=== PATIENT | male | born 1950 | race Caucasian/White ===

== ENCOUNTER → 2017-11-11 | Outpatient (CLI) | payer MEDICARE, SELFPAY ==
[2017-11-11 18:13] LABS: PSA,Total - Annual Screen < 0.01 ng/mL (0.00-4.00)
== END | disposition home or self-care (01) ==
PROVIDERS: Visit Provider Family Medicine Geriatric Medicine
DX: C61 Malignant neoplasm of prostate (principal)
CPT/HCPCS: 36415; 84153; 84403; G0103

== ENCOUNTER → 2018-02-02 10:04 | Outpatient (CLI) | payer MEDICARE, OTHER, SELFPAY ==
[2018-02-02 12:13] LABS: Absolute Lymphocyte Count 0.79 X10^3/ul (0.83-4.51); Absolute Neutrophil Count 2.3 X10^3/uL (2.0-7.7); Basophil# 0.01 X10^3/uL; Basophil% 0.3 % (0-1); Eosinophil# 0.03 X10^3/uL; Eosinophils% 0.8 % (0-5); Hematocrit 45.6 % (40-54); Hemoglobin 15.5 g/dl (13.0-16.5); Lymphocyte # 0.79 X10^3/ul (4.0); Lymphocyte % 21.4 % (19-41); Mean Corpuscular Hgb 30.6 pg (27.0-32.0); Mean Corpuscular Volume 89.9 fL (80-94); Mean Platelet Vol. 11.5 fl (6.2-12.0); Monocyte# 0.59 X10^3/uL; Neutrophil # 2.25 X10^3/uL (2.7-7.7); Platelet Count 207 K/mm3 (150-450); RBC Distribution Width CV 12.8 % (11.6-14.6); RBC Distribution Width SD 41.6 fl (35.1-43.9); Red Blood Count 5.07 M/mm3 (4.6-6.2); White Blood Count 3.7 K/mm3 (4.4-11.0)
[2018-02-02 12:21] LABS: POSITIVE COUNT NO; POSITIVE DIFFERENTIAL NO; POSITIVE MORPHOLOGY NO
[2018-02-02 12:34] LABS: ALB/GLOB Ratio 1.1 RATIO (0.9-2.4); AST(SGOT) 24 U/L (15-37); Alanine Aminotransfer ALT/SGPT 37 U/L (16-61); Albumin, Serum 3.6 g/dL (3.2-5.0); Alkaline Phosphatase 77 U/L (45-117); Anion Gap 10 (5-15); BUN 16 mg/dL (7-18); BUN/Creat Ratio 13.9 RATIO (10-20); Calcium,Total 8.6 mg/dL (8.5-10.1); Chloride 100 mmol/L (98-107); Creatinine, Serum 1.15 mg/dL (0.70-1.30); EST Glomerular Filtration Rate 67 mL/min (>60); Est Glom Filt Rate - Afr Amer 81 mL/min (>60); Globulin 3.3 g/dL (2.2-4.2); Glucose 90 mg/dL (74-106); Potassium 3.7 mmol/L (3.5-5.1); Protein, Total 6.9 g/dL (6.4-8.2); Sodium Level 140 mmol/L (136-145); Thyroid Stim Hormone (TSH) 2.75 uIU/mL (0.358-3.74)
[2018-02-02 12:36] LABS: Vitamin D,25 Hydroxy 27.9 ng/mL (29.95-100.01)
[2018-02-04 11:49] LABS: Hep C Antibodies 0.1 s/co ratio (0.0-0.9)
== END ==
PROVIDERS: Visit Provider Family Medicine Geriatric Medicine
DX: E55.9 Vitamin D deficiency, unspecified (principal); I10 Essential (primary) hypertension; Z12.5 Encounter for screening for malignant neoplasm of prostate; Z13.89 Encounter for screening for other disorder
CPT/HCPCS: 36415; 80053; 82306; 84443; 85025; 86803

== ENCOUNTER 2018-09-07 11:00 | Outpatient (RCR) | payer MEDICARE, OTHER, SELFPAY ==
--- NOTE | 2018-08-25 17:14 | HP.PTEVAL_ITS ---
Patient's Visit Information MONICA RICHARDSON is a 68 year old M referred to Physical Therapy by Christiano Garzon DPM with a diagnosis of R and L PF/ achilles tendonitis/ heel spurs/flatfoot. Date of Evaluation: 08/25/18 Physical Therapist: CHINEDU Gtz - Visit Plan Frequency: 2-3x /Week Duration: 6 Weeks Plan: 2-3X/ week for 4-6 weeks for US to B achilles and heel with MT to the same. Gastroc and achilles stretches both manual and active with HEP and some strengthenining - Subjective Findings: Pt reports that he will get custom orthotics. 2-3 weeks his orthotics will come in He has a dull ache in B heels and x-rays revealed bone spurs in B heels. He was walking really good last summer. Laying in bed at night with his heels digging into the bed will hurt. It is not a horrible pain but enough to be annoying. He has no pain sitting here currently. He has no N&T. He has no decrease sensation in his feet. - Pain R heel pain Pain Intensity (Out of 10): 3 L heel pain Pain Intensity (Out of 10): 3 - Objective Gait: Walks with L forefoot abduction and decrease stance time on the R. Pt is able to walk on heels and toes ( icnrease knee pain). R ankle AROM: 10 degrees DF and 50 degrees PF. L ankle AROM: 15 degrees DF and 50 degrees PF. No tenderness to palpation today to either heel, achilles or PF area. B ankle Strength 5/5 DF, PF, INV, EV - Goals Goal 1:: I HEP Goal Time Frame: 4-6 Weeks Goal 2:: Increase B feet AROM to 15 degrees DF B and 55 degress PF B Goal Time Frame: 4-6 Weeks Goal 3:: Increase gastroc flexibility Goal Time Frame: 4-6 Weeks Goal 4:: Decrease pain and be able to return to recreational walking with less than 1/10 pain afterwards Goal Time Frame: 4-6 Weeks - Rehabilitation Potential Rehabilitation Potential: Good - Anticipated Interventions Thank you for the opportunity to evaluate your patient. For Medicare and Medicare HMO plans, please review the plan of care and approve it. It will need to be FAXED BACK to us at [phone] for Medicare purposes. For Medicare only, by signing this I certify the plan of care. Please let me know if there are questions or concerns regarding this plan of care. Physician Signature:____ Date:
--- NOTE | 2018-12-22 13:07 | HP.PTDCSUM ---
HP - PT D/C Summary It has been my pleasure to treat MONICA RICHARDSON under orders from Christiano Garzon DPM, for the diagnosis of R and L PF/ achilles tendonitis/ heel spurs/flatfoot for a total of 3 visit(s). Discharge Date: Please see the following information for a summary of their discharge status. - Subjective Subjective: Pain is not as painful as it used to be. His R knee is the most painful. Pt gets his orthotics tomm and hopefully that will relieve pressure as well. - Pain R heel pain Pain Intensity (Out of 10): 2 L heel pain Pain Intensity (Out of 10): 2 - Objective Objective/Function: tender on the bottom of the foot. - Goals Goal 1:: I HEP Goal 2:: Increase B feet AROM to 15 degrees DF B and 55 degress PF B Goal 3:: Increase gastroc flexibility Goal 4:: Decrease pain and be able to return to recreational walking with less than 1/10 pain afterwards - Plan Plan: Add slantboard stretch. '2-3X/ week for 4-6 weeks for US to B achilles and heel with MT to the same. Gastroc and achilles stretches both manual and active with HEP and some strengthenining - D/C Information If there are questions or concerns regarding this patient's physical therapy, please feel free to call me at [phone]. Thank you for the referral of this patient. Sincerely, Jayla Brower, MPT
== END 2018-09-07 19:00 | disposition home or self-care (01) ==
LOC: PT 11:00
PROVIDERS: Family Provider Family Medicine Geriatric Medicine; PCP Family Medicine Geriatric Medicine; Referring Provider Podiatrist; Visit Provider Podiatrist
DX: M72.2 Plantar fascial fibromatosis (principal); M76.61 Achilles tendinitis, right leg; M76.62 Achilles tendinitis, left leg; M77.31 Calcaneal spur, right foot; M77.32 Calcaneal spur, left foot; M21.41 Flat foot [pes planus] (acquired), right foot; M21.42 Flat foot [pes planus] (acquired), left foot; M76.821 Posterior tibial tendinitis, right leg; M76.822 Posterior tibial tendinitis, left leg
CPT/HCPCS: 97035; 97161; 97530

== ENCOUNTER → 2018-09-28 | Outpatient (CLI) | payer MEDICARE, OTHER, SELFPAY ==
--- NOTE | 2018-09-28 08:15 | RAD_ITS ---
STUDY: X-RAY - RIGHT KNEE REASON FOR EXAM: Male, 68 years old. Knee pain. TECHNIQUE: 5 view(s) of the knee. COMPARISON: None. FINDINGS: Osseous alignments appear anatomic. There is no acute fracture lucency. There is no cortical step-off. There is no tibial plateau split or depression. There is moderate medial compartment osteoarthritis manifested by joint-space loss, mild subchondral sclerosis and mild marginal osteophyte formation. There is moderate patellofemoral osteoarthritis. Multifocal degenerative patellar spurring is identified. There is a small effusion. There is no radiopaque joint loose body. Peaking of the tibial spines within the intercondylar notch probably represents an additional manifestation of osteoarthritis although cruciate ligament pathology may also present in this fashion. RAD/Knee 4 or More Views IMPRESSION: Multifocal osteoarthritis as characterized above. Small effusion. No evident acute osseous abnormality. No radiopaque joint loose body. Recommendation: If internal derangement is clinically suspected, recommend evaluation with MRI. Electronically Signed: Hussein Trejo MD at 13:39 EDT , Service support ,
== END | disposition home or self-care (01) ==
LOC: HPRAD 08:14
PROVIDERS: Family Provider Family Medicine Geriatric Medicine; PCP Family Medicine Geriatric Medicine; Referring Provider Orthopaedic Surgery; Visit Provider Orthopaedic Surgery
DX: M25.561 Pain in right knee (principal)
CPT/HCPCS: 73564

== ENCOUNTER → 2018-10-26 | Outpatient (CLI) | payer MEDICARE, OTHER, SELFPAY ==
--- NOTE | 2018-10-26 08:28 | RAD_ITS ---
STUDY: X-RAY - RIGHT FEMUR REASON FOR STUDY: Male, 68 years old. Pain TECHNIQUE: 2 view(s) of the femur. COMPARISON: None. FINDINGS: Right hip arthroplasty with normal alignment. No fractures or osteolytic lesions are seen. Moderate bicompartmental knee osteoarthritis. Arterial calcifications. RAD/Femur Min 2 Views IMPRESSION: No acute osseous abnormality. Electronically Signed: Gerardo Garcia MD at 10:34 EDT Tel , Service support ,
== END | disposition home or self-care (01) ==
LOC: HPRAD 08:27
PROVIDERS: Family Provider Family Medicine Geriatric Medicine; PCP Family Medicine Geriatric Medicine; Referring Provider Orthopaedic Surgery; Visit Provider Orthopaedic Surgery
DX: Z96.641 Presence of right artificial hip joint (principal)
CPT/HCPCS: 73552

== ENCOUNTER → 2018-11-05 | Outpatient (CLI) | payer MEDICARE, OTHER, SELFPAY ==
[2018-11-05 18:19] LABS: M R Staph aureus DNA By PCR Negative (Negative); Probe Check PASS; Staph aureus DNA By PCR POSITIVE (Negative)
[2018-11-10 15:27] LABS: Lyme IgG P18 Ab Absent (.); Lyme IgG P23 Ab Absent (.); Lyme IgG P28 Ab Absent (.); Lyme IgG P30 Ab Absent (.); Lyme IgG P39 Ab Absent (.); Lyme IgG P41 Ab Absent (.); Lyme IgG P45 Ab Absent (.); Lyme IgG P58 Ab Absent (.); Lyme IgG P66 Ab Absent (.); Lyme IgG P93 Ab Absent (.); Lyme IgM P23 Ab Absent (.); Lyme IgM P39 Ab Absent (.); Lyme IgM P41 Ab Absent (.)
[2018-11-10 16:14] LABS: Lyme IgG WB Interpretation Negative (.); Lyme IgM WB Interpretation Negative (.)
== END | disposition home or self-care (01) ==
LOC: POLAB3 16:05
PROVIDERS: Family Provider Family Medicine Geriatric Medicine; PCP Family Medicine Geriatric Medicine; Visit Provider Family Medicine Geriatric Medicine
DX: A69.20 Lyme disease, unspecified (principal); B95.62 Methicillin resistant Staphylococcus aureus infection as the cause of diseases classified elsewhere; L03.116 Cellulitis of left lower limb
CPT/HCPCS: 36415; 86617; 87070; 87075; 87077; 87186; 87205; 87640

== ENCOUNTER 2018-12-08 14:02 | Inpatient (IN) | payer MEDICARE, OTHER, SELFPAY ==
--- NOTE | 2018-10-26 11:41 | HP_ITS ---
Intake Intake Visit Reasons: R KNEE F/U Is patient in pain?: Yes Allergies chlorpromazine [From Thorazine] Allergy (Severe, Verified 09/28/18 08:18) Other Medications etodolac 500 mg tablet 500 mg PO BID #60 tab 09/28/18 [Rx Confirmed 09/28/18] hydrochlorothiazide 25 mg tablet PO 90 Days #90 tab 09/28/18 [History Confirmed 09/28/18] simvastatin 20 mg tablet PO 90 Days #90 tab 09/28/18 [History Confirmed 09/28/18] etodolac 500 mg tablet 500 mg PO BID #60 tab 10/26/18 [Rx Confirmed 10/26/18] PFSH Medical History HBP (high blood pressure) (Chronic) Surgical History H/O radical prostatectomy (Inactive) History of right hip replacement (Inactive) Social History Smoking Status: Never smoker HPI R KNEE F/U : Chief Complaint: Right knee Surgical H&P: Yes Details: Parts of this documentation were recorded by a scribe, this documentation accurately reflects the service provided and the decisions made by me, Davis Gudino, 10/26/18 0755. MONICA RICHARDSON is a 68 year old M here today for consent for right total knee. Patient states that he continues to have pain nearly all the time, he is limited with stairs and uneven surfaces. He has been compliant with anti inflammatory and uses it mostly at night. Denies numbness, tingling or other associated symptoms. Ortho Exam Right Knee Skin/Wound: No erythema, No ecchymosis, Yes swelling Homans Sign: No 2+: Effusion Knee ROM: No ROM-Extension -20 to 0 (3), No ROM-Flexion 0-140 (110) Examination: Yes Med jt line tenderness, Yes Lat jt line tenderness, Yes TTP inf pole patella, Yes Crepitus Stability: NML: Anterior Drawer, NML: Posterior Drawer, NML: Varus 30, 1+: Valgus 30 (5mm medial joint gapping) Apprehension with Lateral Translation: No Patella Grind: Yes KNEE: severe pain with patella grind Assessment & Plan Problems 1. Primary osteoarthritis of right knee M17.11 Plan Right TKA. Has allergy to Thorazine. Denies any metal allergies. Has a right CECILIO. Will order a femur x-rays to review before surgery. Risks, benefits and alternatives of surgery reviewed including but not limited to bleeding, infection, nerve, artery and/or tissue damage, fracture, VTE, mechanical feel of the knee, continued pain, stiffness and expected post- operative course. The patient understands all the risks and does wish to proceed with written consent. Educated that the main concern is movement and ROM. Placed on surgery schedule for 11/24/18. Follow up 2 weeks post op or sooner if pain, swelling, numbness or associated symptoms, or concerns develop. All questions answered. Patient in agreement of plan. Orders Orders: Femur Min 2 Views Today Z96.641 Medications New: etodolac do not take with other NSAIDS, STOP 1 week prior to surgery 500 mg PO BID 60 tabs 0RF Coding Level of Care Code Off vis,est,level 3 Diagnoses Primary osteoarthritis of right knee M17.11 10/26/18 1141 <Electronically signed by Davis Gudino DO> Date Davis Gudino DO
[2018-11-18 08:10] VITALS: BP 148/83; PULSE 63; RESP 16; TEMP 36.6; O2SAT 97; BMI 32.5
[2018-11-18 09:40] LABS: Anion Gap 10 (5-15); BUN 25 mg/dL (7-18); BUN/Creat Ratio 22.1 RATIO (10-20); Calcium,Total 8.9 mg/dL (8.5-10.1); Chloride 103 mmol/L (98-107); Creatinine, Serum 1.13 mg/dL (0.70-1.30); EST Glomerular Filtration Rate 68 mL/min (>60); Est Glom Filt Rate - Afr Amer 83 mL/min (>60); Estimated Creatinine Clearance 67.72 ml/min; Glucose 127 mg/dL (74-106); Potassium 3.2 mmol/L (3.5-5.1); Sodium Level 142 mmol/L (136-145)
--- NOTE | 2018-11-19 11:57 | CASEMGMT ---
Call placed to patient to discuss discharge needs after upcoming surgery. Patient plans to return home with assistance from . Patient does not have outpatient PT set up and is interested in home health PT as long as insurance will cover it. No preference of home health agency. Patient has a shower seat, does not have a walker, toilet riser, grab bars. Indicates that after hip surgery, did not need a toilet riser or grab bars. Bedroom and bathroom are on second level, there is a 1/2 bath on the first level. There are 2 steps to enter home. Informed patient that RN-Cm will follow up after surgery for further discharge needs. Ailyn Greer LPN Clinical Support
[2018-12-04 09:58] VITALS: BMI 32.5
--- NOTE | 2018-12-04 12:13 | CASEMGMT ---
Call placed to patient to discuss discharge needs after upcoming surgery. Patient plans to return home with assistance from and/or daughter. Patient has outpatient physical therapy set up at [facility], first visit is the Friday after surgery, 12/14/18, and /daughter will assist with transportation. Patient does not have a walker yet, was told that [facility] will provide one for him. Patient has high rise toilets in his home, also has a shower seat. Patient does not have a bedroom and bathroom on the 1st level of the home - lives in a 2 story home with bedrooms and bathrooms upstairs. Informed patient that RN-CM will likely follow up after surgery. Ailyn Greer LPN Clinical Support
[2018-12-08] VITALS (11 sets, daily range): BP systolic 100–151; BP diastolic 55–79; PULSE 55–85; RESP 14–18; TEMP 36.3–36.8; O2SAT 94–100; BMI 32.5
[2018-12-08] MEDS: Celecoxib 200 MG Capsule PO (06:34)
[2018-12-08] MEDS: Acetaminophen 500 MG Tablet PO (06:34)
[2018-12-08] MEDS: Pregabalin 75 MG Capsule PO (06:34)
[2018-12-08] MEDS: oxyCODONE HCl Cr 10 MG Tablet PO ×2 (06:35→21:20)
[2018-12-08] MEDS: Cefazolin 2 GM in 0.9% Normal Saline 100 ML IV ×3 (07:37→23:01)
[2018-12-08] MEDS: Epinephrine (1 mg/ml) 1 MG/ML VIAL (09:15)
[2018-12-08] MEDS: Morphine 4 MG/ML Syringe (09:15)
[2018-12-08] MEDS: Bupivacaine 0.5% PF 10 ML VIAL (09:15)
--- NOTE | 2018-12-08 10:13 | OP.PCM_ITS ---
Report of Operation Date of Procedure: 12/08/18 Description of Surgical Findings:: Preoperative diagnosis: Right knee DJD Postoperative diagnosis: [Same] Procedure: Right total knee arthroplasty Implant: Puma triathlon cemented right femoral component size 7, cemented tibial baseplate size 7, cemented [asymmetric] patella size 35, polyethylene X3 size [9] [CS] Anesthesia: Spinal general and postoperative adductor canal block Tourniquet time: 90 minutes at 300 mmHg Complications: None Condition: Stable to PACU Estimated blood loss: [25] cc Indication for procedure: This is a 68-year-old male with long standing degenerative joint disease of the knee who has failed conservative treatment and wished to proceed with elective total knee arthroplasty. Risk benefits and alternatives were reviewed including; risk of bleeding, infection, nerve artery and tissue damage, continued pain, postoperative stiffness, venous thromboembolism, need for postoperative rehabilitation, mechanical feel to the knee, and expected postoperative course. Procedure: The patient was met in the preoperative holding area. The operative extremity was identified by both patient and physician and was marked. Patient was met by anesthesia. An adductor canal block was placed by anesthesia [postoperatively] the patient was brought back to the operating room on a wheeled cart and transferred to the operating table in the supine position. Anesthesia was started. Spinal anesthesia was placed but was not effective and required conversion to general. A well-padded tourniquet was placed on the operative extremity. The patient was prepped and draped in the usual sterile fashion. A timeout was called to ensure the proper patient procedure and extremity were being contemplated. An Esmarch was used to exsanguinate the extremity. The tourniquet was inflated. A 10 blade scalpel was used to make a midline incision down through the skin and subcutaneous tissue. Skin retractors placed. Bovie was used to perform meticulous hemostasis. full-thickness flaps were elevated medial and lateral along the joint capsule. A deep blade scalpel was used to perform a medial parapatellar arthrotomy. The knee was brought to full extension. A Bovie was used to release the soft tissues off the most proximal aspect of the medial tibial plateau a three-quarter inch curved osteotome was also used for this process. The infrapatellar fat pad was excised. [The fat pad was excised partially anterior lateral portion the anter ior medial was elevated from the femur]. the patella was everted. The knee was brought into flexion. An intramedullary drill was used followed by flexible intramedullary guide bharat. The distal femoral cutting block was placed and set to remove 10 mm of bone and [5] degrees of valgus. The block was secured with pins and an oscillating saw was used to complete the distal femoral cut. During this, and all bony cuts retractors were used to protect the collateral ligaments. At this point a femoral sizer was used to measure the AP dimension of the femur. The sizer block was pinned in 3 degrees of external rotation. The sizing block was removed and the appropriately sized 4-in-1 cutting block was placed over the previously made pinholes. It was checked with an monique wing and the block was secured with pins. An oscillating saw was used to complete the anterior cut followed by the posterior cut followed by the posterior chamfer cut followed by the anterior chamfer cut. The block was removed as well as the fragments. A ronguer was used to remove excess osteophytes. The medial and lateral meniscus were excised as well as the ACL. At this point a PCL retractor was placed and an intramedullary drill was passed down the tibial canal followed by a solid intramedullary guide bharat. The tibial cutting block was attached and set to remove 9 mm of bone from the high side. This was checked with an external alignment drop bharat for slope and tilt. It was pinned into place. An oscillating saw was used to complete the tibial plateau cut and the block was removed. A large osteotome was used to elevate the fragment and a Oneal and a Bovie were used to free the fragment from the surrounding soft tissue. A rongeur was once again used to remove osteophytes a lamina sheet metal worker apprentice was used to evaluate the posterior capsular structures. A three-quarter inch curved osteotome was used to remove posterior osteophytes. A spacer block was inserted in both extension and flexion to ensure adequate spacing. Trials were inserted full extension and flexion were achieved in varus and valgus stability throughout range of motion were seen, balancing techniques were performed. At this point the attention was turned towards the patella. A caliper was used to ensure sufficient bone stock to remove 10 mm of bone. A reamer was used to perform this task. Lug holes were made for the appropriate-sized patella. The patella trial was inserted and there was good patellar tracking with knee range of motion. The tibial baseplate was allowed to float into rotation and was marked on the tibial plateau with a Bovie. Lug holes were made in the femur and trials were removed. The tibial baseplate was then sized and its preparation was completed with a fin punch. The knee was thoroughly irrigated. A posterior capsular injection was performed [with our standard cocktail]. The knee was brought into flexion and irrigated again. The tibial baseplate was cemented. The implant seated more laterally than the fin punch and trial we removed the component and placed it again and it again seated laterally slightly more than planned there was a slight overhang laterally however it was felt to be within acceptable range so was left excess cement was removed with curettes. The polyethylene component was inserted. The femoral component was cemented. The knee was brought into full extension and placed on a bump. The patellar component was cemented. At this point a Betadine rinse was placed and thoroughly irrigated after a few minutes. This was followed by an Iricept rinse which was allowed to sit for 1 minute and then thoroughly irrigated.At this point all gloves were changed. The knee was thoroughly irrigated the joint capsule was closed with [#1 Ethibond]. Tourniquet was let down followed by 0 Vicryl and 2-0 Vicryl in the subcutaneous tissues. followed by otilio in the skin. Dressing was applied in the form of Xeroform 4 x 4 ABD web roll and an Steve wrap from the foot to the groin. The patient tolerated the procedure well, all counts were correct patient was brought back to the PACU in stable condition.
--- NOTE | 2018-12-08 10:33 | RAD_ITS ---
STUDY: X-RAY - RIGHT KNEE REASON FOR EXAM: Male, 68 years old. Total knee replacement. TECHNIQUE: 2 view(s) of the knee. COMPARISON: Comparison is made with prior study dated September 28, 2014. FINDINGS: The patient is status post total knee replacement. There is good alignment. Postoperative soft tissue changes. RAD/Knee 1 or 2 Views IMPRESSION: Status post total knee replacement. There is good alignment. Postoperative soft tissues changes. Electronically Signed: Aleks Aviles, at 13:06 EDT , Service support ,
[2018-12-08] MEDS: Lactated Ringers 1,000 ML 125 ML IV ×2 (12:47→23:01)
[2018-12-08] MEDS: Acetaminophen 500 MG Tablet 1000 MG PO ×2 (14:49→21:20)
[2018-12-08] MEDS: APIXABAN 2.5 MG TABLET PO (21:21)
[2018-12-08] MEDS: Senna/Docusate Sodium 1 Tablet 2 TABLET PO (21:21)
[2018-12-08] MEDS: oxyCODONE 5 MG Tablet PO (23:06)
[2018-12-09] MEDS: oxyCODONE 5 MG Tablet PO ×2 (04:16→18:10)
[2018-12-09 04:33] VITALS: BP 106/59; PULSE 84; RESP 16; TEMP 37.3; O2SAT 93
[2018-12-09] MEDS: Acetaminophen 500 MG Tablet 1000 MG PO ×3 (05:00→22:31)
[2018-12-09 06:35] LABS: Hematocrit 36.5 % (40-54); Hemoglobin 11.9 g/dL (13.0-16.5); Mean Corp Hgb Conc 32.6 g/dL (32-36); Mean Corpuscular Hgb 30.1 pg (27.0-32.0); Mean Corpuscular Volume 92.4 fL (80-94); Mean Platelet Vol. 10.2 fl (6.2-12.0); Platelet Count 146 K/mm3 (150-450); RBC Distribution Width CV 12.6 % (11.6-14.6); Red Blood Count 3.95 M/mm3 (4.6-6.2); White Blood Count 6.8 K/mm3 (4.4-11.0)
[2018-12-09 06:58] LABS: Anion Gap 5 (5-15); BUN 26 mg/dL (7-18); BUN/Creat Ratio 18.3 RATIO (10-20); Chloride 100 mmol/L (98-107); Creatinine, Serum 1.42 mg/dL (0.70-1.30); EST Glomerular Filtration Rate 53 mL/min (>60); Est Glom Filt Rate - Afr Amer 64 mL/min (>60); Estimated Creatinine Clearance 53.89 ml/min; Glucose 117 mg/dL (74-106); Potassium 3.5 mmol/L (3.5-5.1); Sodium Level 137 mmol/L (136-145)
--- NOTE | 2018-12-09 07:24 | PCM.PN.ORT ---
Subjective: Seen and examined doing okay pain controlled no fevers chills nausea vomiting shortness of breath chest pain - Physical Exam General: Alert, Oriented x3, Cooperative, No apparent distress Extremities: - - Right lower extremity dressing clean dry and intact compartments soft neurovascularly intact Vital Signs Temp Pulse Resp BP Pulse Ox 99.1 F 84 16 106/59 L 93 12/09/18 04:33 12/09/18 04:33 12/09/18 04:33 12/09/18 04:33 12/09/18 04:33 Oxygen Flow Rate (L/min) 2 Oxygen Delivery Method Room Air Weight: 240 lb 8.389 oz Body Mass Index (BMI) 32.5 Intake and Output for Last 24 Hours 12/07/18 12/08/18 12/09/18 23:59 23:59 23:59 Intake Total 4632 / 4632 1279 / 1279 Output Total 225 / 225 Balance 4407 / 4407 1279 / 1279 Laboratory Tests Past 24 Hrs 12/09/18 12/09/18 06:15 06:15 WBC 6.8 RBC 3.95 L Hgb 11.9 L Hct 36.5 L MCV 92.4 MCH 30.1 MCHC 32.6 RDW Std Deviation 43.0 RDW Coeff of Srinivas 12.6 Plt Count 146 L MPV 10.2 Sodium 137 Potassium 3.5 Chloride 100 Carbon Dioxide 32.0 Anion Gap 5 BUN 26 H Creatinine 1.42 H Estim Creat Clear Calc 53.89 Est GFR (MDRD) Af Amer 64 Est GFR (MDRD) Non-Af 53 L BUN/Creatinine Ratio 18.3 Glucose 117 H Calcium 8.0 L Medical Necessity - Tobacco Use Smoking Status: Never smoker Tobacco Use: Non-smoker Assessment/Plan Stop day #1 right total knee arthroplasty Eliquis 2.5 mg twice daily Nursing to be changed tomorrow Continue PT OT Discharge home tomorrow with home health care
[2018-12-09 07:31] VITALS: PULSE 80
[2018-12-09 08:24] VITALS: BP 130/68; PULSE 90; RESP 18; TEMP 37; O2SAT 94
[2018-12-09] MEDS: APIXABAN 2.5 MG TABLET PO ×2 (08:37→22:31)
[2018-12-09] MEDS: hydroCHLOROthiazide 25 MG Tablet PO (08:38)
[2018-12-09] MEDS: oxyCODONE HCl Cr 10 MG Tablet PO (10:09)
--- NOTE | 2018-12-09 11:10 | CASEMGMT ---
LUCAS PEDRAZA Face to Face with patient for initial transition planning/care coordination assessment. RN MILO introduced self and role at [facility]. Patient lying in bed, alert and oriented. Patient willing to participate in assessment and is able to answer all questions appropriately. Care providers, pharmacy, and demographics verified. Patient wishes to discharge home with outpatient therapy at [facility] scheduled for 12/14/18. Patient states he has no further needs or concerns at this time. CM to follow for discharge planning needs that may arise. PCP: Iavn Specialists: None Preferred Pharmacy: [facility] Benefit: yes Living Will/HPOA: yes, Juju Felipe LNOK: Living Arrangements: patient lives with in 2 story home with bed and bath on second floor. Patient has railings and was independent at home. Transportation: DME/HHC: Patient has shower chair and raised toilet at home. Patient will need script for walker at discharge. LUCAS PEDRAZA will assist with setting up walker. Patient has outpatient therapy setup at [facility] on 12/14/18. Disposition Plan: Patient to discharge home with outpatient therapy, family support, and follow-up plans in place. Catarina JACKSON, RN, CM
[2018-12-09 13:43] VITALS: BP 114/63; PULSE 104; PULSE 110; RESP 18; TEMP 37.4; O2SAT 94
[2018-12-09 20:17] VITALS: BP 124/68; PULSE 95; RESP 18; TEMP 37.8; O2SAT 94
[2018-12-09] MEDS: Atorvastatin Calcium 10 MG Tablet PO (22:31)
[2018-12-09 22:33] VITALS: TEMP 36.8
[2018-12-10 02:55] VITALS: BP 124/65; PULSE 92; RESP 18; TEMP 37.4; O2SAT 95
[2018-12-10] MEDS: Acetaminophen 500 MG Tablet 1000 MG PO ×2 (06:21→13:09)
[2018-12-10 06:38] LABS: Hematocrit 35.4 % (40-54); Hemoglobin 11.9 g/dL (13.0-16.5); Mean Corp Hgb Conc 33.6 g/dL (32-36); Mean Corpuscular Hgb 30.1 pg (27.0-32.0); Mean Corpuscular Volume 89.6 fL (80-94); Mean Platelet Vol. 10.8 fl (6.2-12.0); Platelet Count 144 K/mm3 (150-450); RBC Distribution Width CV 12.5 % (11.6-14.6); RBC Distribution Width SD 41.3 fl (35.1-43.9); Red Blood Count 3.95 M/mm3 (4.6-6.2); White Blood Count 8.6 K/mm3 (4.4-11.0)
[2018-12-10 08:00] VITALS: BP 111/60; PULSE 89; RESP 16; TEMP 37.7; O2SAT 95
[2018-12-10] MEDS: APIXABAN 2.5 MG TABLET PO (08:25)
[2018-12-10] MEDS: oxyCODONE 5 MG Tablet PO (08:25)
--- NOTE | 2018-12-10 08:25 | DCINST_ITS ---
Discharge Diet: No Restrictions Call your doctor if you observe: Shortness of breath, Chest pain, Uncontrolled pain Additional Instructions: Ice and elevate next week while not ambulating. Encourage ambulation weightbearing as tolerated. Encourage FULL knee extension and flexion 1 time EVERY time you get up and down and MULTIPLE times per day. Begin showering postop day #3. Remove the dressing prior to shower gently wash with warm water and antibacterial soap then pat dry place ABD pad and AMRIT hose over top. This is to be done daily. If not showering daily must clean incision and change dressing daily. Do not allow animals near incision keep clean. Follow anticoagulation recommendations. Call Dr. Gudino with any concerns. Allergies/Adverse Reactions: Allergies chlorpromazine [From Thorazine] Allergy (Severe, Verified 11/23/18 08:30) Other Hallucinations Medications to take at Discharge hydrochlorothiazide 25 mg tablet 25 mg PO DAILY 90 Days #90 tab 09/28/18 simvastatin 20 mg tablet 20 mg PO QHS 90 Days #90 tab 09/28/18 Calcium/Magnesium/Vitamin D3 [Kb-Mag Complex 300-150 mg Tab] 1 ea PO DAILY 11/18/18 Multivitamin with Minerals [Multiple Vitamin] 1 ea PO DAILY 11/18/18 Vit A/Vit C/Vit E/Zinc/Copper [Preservision Areds Softgel] 1 ea PO DAILY 11/18/18 prednisoLONE eye drops (5 mL) [Pred Forte eye drops (5 mL)] 1 drp LEFT EYE TID 11/18/18 Acetaminophen [Tylenol] 1,000 mg PO Q6H PRN #100 tab 12/10/18 Apixaban [Eliquis] 2.5 mg PO BID 14 Days #28 tab 12/10/18 Oxycodone [Oxyir] 5 - 10 mg PO Q4H PRN PRN 7 Days #60 tablet 12/10/18 The following prescriptions were given: Apixaban [Eliquis] 2.5 mg PO BID 14 Days #28 tab Transmission Status: Pending to [facility] Oxycodone [Oxyir] 5 - 10 mg PO Q4H PRN PRN 7 Days #60 tablet PRN Reason: Mod-Severe Pain (4-03/04) Transmission Status: Sent to [facility] Acetaminophen [Tylenol] 1,000 mg PO Q6H PRN #100 tab Transmission Status: Pending to [facility] [facility] Primary Care Physician: Anoop Love Chi, MD [Primary Care Provider] - Test Results: Test results from this visit will be discussed in further detail at your follow- up appointment, if applicable. Please Follow Up With: Davis Gudino DO - 2 weeks
[2018-12-10] MEDS: hydroCHLOROthiazide 25 MG Tablet PO (08:26)
--- NOTE | 2018-12-10 08:27 | DS.PCM_ITS ---
Discharge Date and Diagnosis Date of Admission: 12/08/18 Date of Discharge: 12/10/18 Hospital Course and Treatment Summary of Care Provided: This is a 68-year-old male who has long history of degenerative joint disease to the knee who has failed conservative treatment and wished to undergo elective total knee arthroplasty. Patient underwent the aformentioned procedure on the admission date without any intraoperative complications. Patient did receive pre-and postoperative antibiotics which were discontinued within 23 hours postoperatively. Patient did receive spinal anesthesia as well as an adductor canal block postoperatively where he required conversion to oral anesthesia spinal was not effective. pain was controlled with IV and transition to p.o. pain medication she will be discharged home with oxycodone and will continue Tylenol as well. Patient had minimal intraoperative blood loss and tranexamic acid was administered there was no need for postoperative blood transfusion her vital signs remained stable. Patient was started on both mechanical and chemical DVT per prophylaxis postoperatively in the form of SCDs AMRIT hose and Eliquis 2.5 mg twice daily for which she will continue for 2 additional weeks post hospital discharge. Dressing was changed on postop day #2 without any concerning signs she will begin showering on postop day #3 and will change dressing daily at this point. Patient will follow-up in the office in 2 weeks. No intrahospital complications. - Physical Exam General: Alert, Oriented x3, Cooperative Extremities: - - Incision looks good no signs of infection compartment soft neurovascular intact Vital Signs Temp Pulse Resp BP Pulse Ox 99.9 F H 89 16 111/60 95 12/10/18 08:00 12/10/18 08:00 12/10/18 08:00 12/10/18 08:00 12/10/18 08:00 Oxygen Flow Rate (L/min) 2 Oxygen Delivery Method Room Air Weight: 240 lb 8.389 oz Body Mass Index (BMI) 32.5 Intake and Output for Last 24 Hours 12/08/18 12/09/18 12/10/18 23:59 23:59 23:59 Intake Total 4632 / 4632 1279 / 1679 800 / 800 Output Total 225 / 225 500 / 500 Balance 4407 / 4407 1279 / 1179 300 / 300 Laboratory Tests Past 24 Hrs 12/10/18 06:12 WBC 8.6 RBC 3.95 L Hgb 11.9 L Hct 35.4 L MCV 89.6 MCH 30.1 MCHC 33.6 RDW Std Deviation 41.3 RDW Coeff of Srinivas 12.5 Plt Count 144 L MPV 10.8 Discharge Diet: No Restrictions Call your doctor if you observe: Shortness of breath, Chest pain, Uncontrolled pain Home Medications: Medications to take at Discharge hydrochlorothiazide 25 mg tablet 25 mg PO DAILY 90 Days #90 tab 09/28/18 simvastatin 20 mg tablet 20 mg PO QHS 90 Days #90 tab 09/28/18 Calcium/Magnesium/Vitamin D3 [Kb-Mag Complex 300-150 mg Tab] 1 ea PO DAILY 11/18/18 Multivitamin with Minerals [Multiple Vitamin] 1 ea PO DAILY 11/18/18 Vit A/Vit C/Vit E/Zinc/Copper [Preservision Areds Softgel] 1 ea PO DAILY 11/18/18 prednisoLONE eye drops (5 mL) [Pred Forte eye drops (5 mL)] 1 drp LEFT EYE TID 11/18/18 Acetaminophen [Tylenol] 1,000 mg PO Q6H PRN #100 tab 12/10/18 Apixaban [Eliquis] 2.5 mg PO BID 14 Days #28 tab 12/10/18 Oxycodone [Oxyir] 5 - 10 mg PO Q4H PRN PRN 7 Days #60 tablet 12/10/18 Following Prescrptions Were Given to Patient: Apixaban [Eliquis] 2.5 mg PO BID 14 Days #28 tab Transmission Status: Pending to [address] Oxycodone [Oxyir] 5 - 10 mg PO Q4H PRN PRN 7 Days #60 tablet PRN Reason: Mod-Severe Pain (-03/04) Transmission Status: Sent to [address] Acetaminophen [Tylenol] 1,000 mg PO Q6H PRN #100 tab Transmission Status: Pending to [address] Primary Care Physician: Anoop Love Chi, MD [Primary Care Provider] - Please Follow Up With: Davis Gudino DO - 2 weeks Additional Instructions: Ice and elevate next week while not ambulating. Encourage ambulation weightbearing as tolerated. Encourage FULL knee extension and flexion 1 time EVERY time you get up and down and MULTIPLE times per day. Begin showering postop day #3. Remove the dressing prior to shower gently wash with warm water and antibacterial soap then pat dry place ABD pad and AMRIT hose over top. This is to be done daily. If not showering daily must clean incision and change dressing daily. Do not allow animals near incision keep clean. Follow anticoagulation recommendations. Call Dr. Gudino with any concerns. Medical Necessity - Tobacco Use Smoking Status: Never smoker Tobacco Use: Non-smoker Meaningful Use Info Meaningful Use Diagnoses (Choose all that apply): None applicable
--- NOTE | 2018-12-10 10:30 | CASEMGMT ---
Addendum entered by Catarina Lazaro 12/10/18 12:55: LUCAS PEDRAZA in [place] if [place] [facility] [place]. inquired if HHC at been setup. RN MILO updated that patient said he had outpatient therapy setup for Friday at [facility]. Patient and would now like HHC at home and prefers [facility]. LUCAS PEDRAZA sent referral to [facility] and they are able to accept the patient. LUCAS PEDRAZA updated and patient. Original Note: LUCAS PEDRAZA sent [place] [facility] and arranged for delivery to hospital prior to discharge. LUCAS PEDRAZA updated the patient regarding setup. LUCAS PEDRAZA also called patient's pharmacy to inquire about cost of Eliquis. Per pharmacist, patient has not met deductible and cost is $140. LUCAS PEDRAZA updated patient and voiced understanding.
[2018-12-10 13:05] VITALS: BP 137/73; PULSE 99; RESP 18; TEMP 37.3; O2SAT 97
== END 2018-12-10 13:12 | disposition home or self-care (01) | DRG 470 ==
LOC: MS3 12-09 09:51 → SDC 12-09 09:51
PROVIDERS: Anesthesiology; Admitting Provider Orthopaedic Surgery; Family Provider Family Medicine Geriatric Medicine; PCP Family Medicine Geriatric Medicine; Referring Provider Orthopaedic Surgery; Visit Provider Orthopaedic Surgery
PROC: (CPT 27447; principal; 2018-12-08 07:05)
DX: M17.11 Unilateral primary osteoarthritis, right knee (principal)
CPT/HCPCS: 36415; 73560; 80048; 85027; 87081; 93005; 97110; 97116; 97162; 97166; 97530; C1776; J7120; J2405; J3490

== ENCOUNTER 2018-12-10 15:51 | Emergency (ER) | payer MEDICARE, OTHER, SELFPAY ==
[2018-12-08 12:13] VITALS: BMI 32.5
[2018-12-10 15:51] VITALS: BP 106/56; PULSE 114; RESP 16; TEMP 37.2; O2SAT 96; BMI 32.1
--- NOTE | 2018-12-10 17:11 | ED.VISSUMM ---
- ER Visit Summary Date of Service: 12/10/18 Chief Complaint: Diarrhea History of Present Illness: The patient is a 68 M who presents with diarrhea that has been getting worse over the past 5 days. Patient was discharged from the hospital today after a right total knee replacement. Patient went home and his diarrhea is more foul-smelling and watery. Patient and family are concerned over possible C. difficile infection. Patient has been on 2 antibiotics for knee infection. Patient was on a second course of 2 different antibiotics for his infection prior to surgery. Patient admits to a fever of 101. Patient denies any nausea or vomiting. Patient does admit to some lower abdominal pain. Patient also admits to a mild headache. Physical Examination: Vital signs are stable except for mild tachycardia of 114. Patient is afebrile. Patient is in no acute distress. Oral mucosa is pink and moist. Neck is supple. Trachea is midline. There is no JVD noted. Heart was regular and tachycardic. Lungs are clear and equal bilaterally. Abdomen is soft. Bowel sounds are normal. There is no tenderness. There is no guarding or rebound noted. Cranial nerves II through XII are intact. There are no focal motor or sensory deficits noted. Test Results: Stool was sent for C. difficile and enteric pathogens. Stool was positive for C. difficile. Emergency Department Course and Treatment: Patient was started on oral vancomycin. Patient was instructed to follow-up with his primary care physician in 5 to 7 days. Patient understood and was agreeable with the plan. All questions were answered. Disposition: Discharge home Impression: C. difficile colitis This note was generated with [employer] dictation software. It may contain incorrect words, spelling, and punctuation that were not noted in review of the chart prior to signing ED Disposition - Plan for ED Patient: Disposition: Home or Assisted Living Diagnosis: C. difficile diarrhea Instructions: Clostridium difficile Infection, DIARRHEA, Bacterial (6y-Adult) Prescriptions: Vancomycin [Vancocin] 125 mg PO Q6H #40 cap Prescription Printed Referrals: Anoop Love Chi, MD [Primary Care Provider] - 5-7 Days
[2018-12-10 17:27] VITALS: TEMP 37.2
[2018-12-10] MEDS: Acetaminophen 500 MG Tablet 1000 MG PO (18:12)
[2018-12-10 19:47] VITALS: BP 138/76; PULSE 81; RESP 15; TEMP 36.7; O2SAT 96
== END 2018-12-10 19:50 | disposition home or self-care (01) ==
PROVIDERS: Emergency Provider Emergency Medicine; Family Provider Family Medicine Geriatric Medicine; PCP Family Medicine Geriatric Medicine
DX: A04.72 Enterocolitis due to Clostridium difficile, not specified as recurrent (principal); Z96.651 Presence of right artificial knee joint; I10 Essential (primary) hypertension; E78.00 Pure hypercholesterolemia, unspecified; Z85.46 Personal history of malignant neoplasm of prostate; Z79.01 Long term (current) use of anticoagulants; Z79.899 Other long term (current) drug therapy
CPT/HCPCS: 87493; 87506; 99283

== ENCOUNTER → 2018-12-17 | Outpatient (CLI) | payer MEDICARE, OTHER, SELFPAY ==
[2018-12-10 15:51] VITALS: BMI 32.1
[2018-12-17 12:51] LABS: Hematocrit 40.5 % (40-54); Hemoglobin 13.2 g/dL (13.0-16.5); Mean Corp Hgb Conc 32.6 g/dL (32-36); Mean Corpuscular Hgb 29.4 pg (27.0-32.0); Mean Corpuscular Volume 90.2 fL (80-94); Mean Platelet Vol. 9.7 fl (6.2-12.0); POSITIVE COUNT YES; POSITIVE MORPHOLOGY YES; Platelet Count 414 K/mm3 (150-450); RBC Distribution Width CV 12.5 % (11.6-14.6); RBC Distribution Width SD 40.7 fl (35.1-43.9); Red Blood Count 4.49 M/mm3 (4.6-6.2); White Blood Count 7.2 K/mm3 (4.4-11.0)
[2018-12-17 13:10] LABS: Anion Gap 5 (5-15); BUN 27 mg/dL (7-18); BUN/Creat Ratio 22.7 RATIO (10-20); Calcium,Total 8.9 mg/dL (8.5-10.1); Chloride 100 mmol/L (98-107); Creatinine, Serum 1.19 mg/dL (0.70-1.30); EST Glomerular Filtration Rate 64 mL/min (>60); Est Glom Filt Rate - Afr Amer 78 mL/min (>60); Glucose 101 mg/dL (74-106); Sodium Level 134 mmol/L (136-145)
[2018-12-17 14:03] LABS: Differential Indicated MANUAL DIFF
[2018-12-17 14:07] LABS: Eosinophil 1 % (0-5); Lymphocyte 14 % (19-41); Monocyte 12 % (0-10); Neutrophil-Segmented 73 % (47-70); Platelet Estimate ADEQUATE (ADEQ); Red Cell Morphology NORM C+C NORMAL (NORM C&C); Scan Smear per Review Criteria MANUAL DIFF; Total Cells Counted 100 (MANUAL DIFF)
[2018-12-17 14:08] LABS: Absolute Neutrophil Count 5.3 X10^3/uL (2.0-7.7)
[2018-12-18 10:32] LABS: Pathologist Review Reviewed
== END | disposition home or self-care (01) ==
LOC: POLAB3 10:36
PROVIDERS: Family Provider Family Medicine Geriatric Medicine; PCP Family Medicine Geriatric Medicine; Visit Provider Family Medicine Geriatric Medicine
DX: D64.9 Anemia, unspecified (principal)
CPT/HCPCS: 36415; 80048; 85025

== ENCOUNTER → 2018-12-28 | Outpatient (CLI) | payer MEDICARE, OTHER, SELFPAY ==
[2018-12-23 10:51] VITALS: BMI 32.1
[2018-12-28 17:15] LABS: Absolute Lymphocyte Count 0.79 X10^3/uL (0.83-4.51); Absolute Neutrophil Count 2.3 X10^3/uL (2.0-7.7); Basophil# 0.02 X10^3/uL; Basophil% 0.5 % (0-1); Eosinophil# 0.06 X10^3/uL; Eosinophils% 1.4 % (0-5); Hematocrit 38.4 % (40-54); Hemoglobin 12.6 g/dL (13.0-16.5); Lymphocyte # 0.79 X10^3/ul (4.0); Lymphocyte % 17.8 % (19-41); Mean Corp Hgb Conc 32.8 g/dL (32-36); Mean Corpuscular Hgb 29.5 pg (27.0-32.0); Mean Corpuscular Volume 89.9 fL (80-94); Mean Platelet Vol. 9.7 fl (6.2-12.0); Monocyte# 1.23 X10^3/uL; Monocyte% 27.8 % (0-10); NRBC Flagged by Analyzer 0 % (0-5); Neutrophil # 2.32 X10^3/uL (2.7-7.7); Neutrophil % 52.3 % (47-70); Platelet Count 318 K/mm3 (150-450); RBC Distribution Width CV 12.2 % (11.6-14.6); RBC Distribution Width SD 39.8 fl (35.1-43.9); Red Blood Count 4.27 M/mm3 (4.6-6.2); White Blood Count 4.4 K/mm3 (4.4-11.0)
== END | disposition home or self-care (01) ==
LOC: POLAB3 16:59
PROVIDERS: Family Provider Family Medicine Geriatric Medicine; PCP Family Medicine Geriatric Medicine; Visit Provider Family Medicine Geriatric Medicine
DX: D64.9 Anemia, unspecified (principal); B96.89 Other specified bacterial agents as the cause of diseases classified elsewhere
CPT/HCPCS: 36415; 85025; 87493

== ENCOUNTER → 2019-02-03 08:39 | Outpatient (CLI) | payer MEDICARE, OTHER, SELFPAY ==
[2019-01-20 09:22] VITALS: BMI 32.1
[2019-02-03 12:34] LABS: Absolute Lymphocyte Count 0.87 X10^3/uL (0.83-4.51); Absolute Neutrophil Count 2.4 X10^3/uL (2.0-7.7); Basophil# 0.01 X10^3/uL; Basophil% 0.3 % (0-1); Eosinophil# 0.03 X10^3/uL; Eosinophils% 0.8 % (0-5); Hematocrit 42.6 % (40-54); Hemoglobin 13.9 g/dL (13.0-16.5); Lymphocyte # 0.87 X10^3/ul (4.0); Lymphocyte % 22.2 % (19-41); Mean Corp Hgb Conc 32.6 g/dL (32-36); Mean Corpuscular Hgb 29.2 pg (27.0-32.0); Mean Corpuscular Volume 89.5 fL (80-94); Mean Platelet Vol. 10.4 fl (6.2-12.0); Monocyte# 0.59 X10^3/uL; Monocyte% 15.1 % (0-10); NRBC Flagged by Analyzer 0 % (0-5); Neutrophil # 2.36 X10^3/uL (2.7-7.7); Neutrophil % 60.1 % (47-70); Platelet Count 259 K/mm3 (150-450); RBC Distribution Width CV 12.8 % (11.6-14.6); Red Blood Count 4.76 M/mm3 (4.6-6.2); White Blood Count 3.9 K/mm3 (4.4-11.0)
[2019-02-03 12:53] LABS: Vitamin D,25 Hydroxy 34.6 ng/mL (29.95-100.01)
[2019-02-03 13:05] LABS: ALB/GLOB Ratio 0.8 RATIO (0.9-2.4); AST(SGOT) 16 U/L (15-37); Alanine Aminotransfer ALT/SGPT 23 U/L (16-61); Albumin, Serum 3.3 g/dL (3.2-5.0); Alkaline Phosphatase 80 U/L (45-117); Anion Gap 7 (5-15); BUN 24 mg/dL (7-18); BUN/Creat Ratio 20.9 RATIO (10-20); Calcium,Total 8.8 mg/dL (8.5-10.1); Chloride 102 mmol/L (98-107); Creatinine, Serum 1.15 mg/dL (0.70-1.30); EST Glomerular Filtration Rate 67 mL/min (>60); Est Glom Filt Rate - Afr Amer 81 mL/min (>60); Globulin 4.1 g/dL (2.2-4.2); Glucose 120 mg/dL (74-106); PSA,Total - Annual Screen < 0.01 ng/mL (0.00-4.00); Potassium 3.1 mmol/L (3.5-5.1); Protein, Total 7.4 g/dL (6.4-8.2); Sodium Level 138 mmol/L (136-145)
== END ==
PROVIDERS: Family Provider Family Medicine Geriatric Medicine; PCP Family Medicine Geriatric Medicine; Visit Provider Family Medicine Geriatric Medicine
DX: E55.9 Vitamin D deficiency, unspecified (principal); I10 Essential (primary) hypertension; Z12.5 Encounter for screening for malignant neoplasm of prostate
CPT/HCPCS: 36415; 80053; 82306; 84153; 84443; 85025; G0103

== ENCOUNTER 2019-02-12 14:00 | Outpatient (RCR) | payer MEDICARE, OTHER, SELFPAY ==
[2018-11-23 08:41] VITALS: BMI 32.5
--- NOTE | 2018-12-08 07:17 | HP.PCM_ITS ---
History and Physical Date of Admission: 12/08/18 Intake Vital Signs 12/04/18 Body Mass Index (BMI) 32.5 11/23/18 Body Mass Index (BMI) 32.5 Intake Visit Reasons: RIGHT KNEE Chief Complaint: Right knee surgery coming up Allergies chlorpromazine [From Thorazine] Allergy (Severe, Verified 11/23/18 08:30) Other [facility] Medical History (Updated 09/28/18 @ 08:20 by Jim Guerrero) HBP (high blood pressure) (Chronic) Surgical History (Updated 09/28/18 @ 08:21 by Jim Guerrero) H/O radical prostatectomy (Inactive) History of right hip replacement (Inactive) Social History (Updated 12/04/18 @ 09:58 by Davis Gudino DO) Smoking Status: Never smoker HPI RIGHT KNEE: Details: Parts of this documentation were recorded by a scribe, this documentation accurately reflects the service provided and the decisions made by meDavis DO 12/04/18 0750. MONICA RICHARDSON is a 68 year old M here today for skin check on bug bite and infection. He has great healing today and no signs of redness and no fever, chills or nausea. He has been using the scrub for surgery prep. Denies numbness, tingling or other associated symptoms. His knee pain continues to be worse with activity. Ortho Exam Right Knee Skin/Wound: No erythema, No ecchymosis, No swelling KNEE: Prior bug bites are resolved. No sign of active infection Assessment & Plan Problems 1. Primary osteoarthritis of right knee M17.11 Plan Instructed to proceed with scrub and pre surgery protocol. Gave PT script today as he wishes to go directly to outpatient PT. Will treat with ointment to put in his nose for infection prophylaxis MRSA. Instructed to stop nsaids which he does not take anyway Follow up post op or sooner if pain, swelling, numbness or associated symptoms, or concerns develop. All questions answered. Patient in agreement of plan. Medications New: mupirocin 2% apply generous amount to q-tip and apply to each nare 2x/day until surgery 1 applic topical BID 15 grams 0RF Coding Level of Care Code Off vis,est,level 3 Diagnoses Primary osteoarthritis of right knee M17.11 ??Osteoarthritis type: primary I have re-examined the patient. There are no clinical changes since date of exam
[2018-12-23 10:51] VITALS: BMI 32.1
--- NOTE | 2018-12-29 17:23 | HP.PTEVAL_ITS ---
Patient's Visit Information MONICA RICHARDSON is a 68 year old M referred to Physical Therapy by Davis Gudino DO with a diagnosis of R TKA 12/09/18. Date of Evaluation: 12/29/18 Physical Therapist: Christian Jacobs, DPT, OCS, CSCS - Visit Plan Frequency: 3x /Week Duration: 4-6 Weeks Plan: 3x/week for 4-6 weeks: patellar mobs and PROM knee flexiona dn ext(prone hang at end). quad and HS rollout and stretch. gait training steps adn push off R. strengthen R knee and hip to progress to HEP when motion is full. - Subjective Findings: 12/08/18 R TKA. Was bone on bone. Pain was holding him back. Could not mow the lawn. Had cd-ff adn was on antibiotics before surgery. Since surgery Has home health PT with [facility]. Pain level is 2/10 at rest, stiff to stand. Doctor needs full extension. Propping it up to get extension. Knee pain has not been worse than 4/10. Stiff. Has measured to 90 in hosptial and 105 at home. Goal is 120. No walker or cane . Used walker for 2 days then cane. Not need any of them now. HEP: yes for extension, HR/TR, march at counter, hip ext/abd, chair scoots, HS. SLR. Retired. Spends days working outside adn mowing when healthy. Has not done them lately. Enjoys walking when healthy. Now up to .5 miles 2x/day. But slower than usual. Sleeping well. - Pain R knee Pain Intensity (Out of 10): 1 Pain Intensity Range: 0, 4 - Objective -2-92, 97 after patellar mobs 103 degrees after OP. 106 with chair scoot. Walk I on own without AD but avoids knee flexiona dn push off with ankel R until cued, then does fairly well. Trasnfers out adn into chair I with UE. Steps are reciprocal with rail but weak on R and slightly uncomfortable descending adn ascending with R. Quads max tight B and HS mod tight. L knee aROM 0-118. patella is stiff specifically distally on R, scarring under incision apparent moderately. Incision well healed without drainage or excessive redness , heat or swelling. strength R hip 4 vs 4+ L. knee ext 4+ R adn 5/5 on L flexion and ext. ankles 4+/5 B. mild swelling R knee today and not tender to the touch. - Balance Scores Functional Gait Assessment Score: 25 % Disability: 16.6700 - Goals Goal 1:: Walk a 16 minute mile for 2+ miles without pain. Goal Time Frame: 4-6 Weeks Goal 2:: 0-118 AROM to do stairs without pain Goal Time Frame: 4-6 Weeks Goal 3:: Walk without gait deviations or AD community distance Goal Time Frame: 4-6 Weeks Goal 4:: up and down steps reciprocally without rail Goal Time Frame: 4-6 Weeks Goal 5:: Yard work without noticing knee. Goal Time Frame: 4-6 Weeks - Rehabilitation Potential Physical Therapy Diagnosis: s/p R TKA 12/09 Rehabilitation Potential: Excellent - Anticipated Interventions Patient/Client Instruction: Educate patient on: Condition, Plan of Care For the Purpose of:: To decrease pain, To increase ROM, To increase tolerance to activity/condition/position, To improve ability of physical actions for home/community/work/leisure, To improve gait and locomotor functions Therapeutic Exercise to Include: Strength training, Flexibilty training, Gait and locomotor training, Passive ROM, Active ROM For the Purpose of:: To decrease pain, To increase ROM, To improve muscle perfor jabari and motor function, To improve ability of physical actions for home/community/work/leisure, To improve gait and locomotor functions Manual Therapy Techniques to Include: Scar massage, Mobilization For the Purpose of:: To decrease pain, To increase ROM Cryotherapy (ice pack, ice massage): Yes For the Purpose of:: To decrease swelling/inflammation Thank you for the opportunity to evaluate your patient. For Medicare and Medicare HMO plans, please review the plan of care and approve it. It will need to be FAXED BACK to us at [phone] for Medicare purposes. For Medicare only, by signing this I certify the plan of care. Please let me know if there are questions or concerns regarding this plan of care. Physician Signature: Date:
--- NOTE | 2019-01-22 12:30 | HP.PTEVAL_ITS ---
Patient's Visit Information MONICA RICHARDSON is a 68 year old M referred to Physical Therapy by Davis Gudino DO with a diagnosis of R TKA 12/09/18. Date of Evaluation: 12/29/18 Physical Therapist: Christian Jacobs, DPT, OCS, CSCS - Visit Plan Frequency: 3x /Week Duration: 4-6 Weeks Plan: 3x/week for 3 weeks for. rollout adn stretch quads aand HS, patellar mobs, PROM knee flexion and ext adn prone hang, - Subjective Findings: 12/08/18 R TKA. Was bone on bone. Pain was holding him back. Could not mow the lawn. Had cd-ff adn was on antibiotics before surgery. Since surgery Has home health PT with [facility]. Pain level is 2/10 at rest, stiff to stand. Doctor needs full extension. Propping it up to get extension. Knee pain has not been worse than 4/10. Stiff. Has measured to 90 in hosptial and 105 at home. Goal is 120. No walker or cane . Used walker for 2 days then cane. Not need any of them now. HEP: yes for extension, HR/TR, march at counter, hip ext/abd, chair scoots, HS. SLR. Retired. Spends days working outside adn mowing when healthy. Has not done them lately. Enjoys walking when healthy. Now up to .5 miles 2x/day. But slower than usual. Sleeping well. - Pain R knee Pain Intensity (Out of 10): 1 Pain Intensity Range: 0, 4 Comment: at rest - Objective -2-92, 97 after patellar mobs 103 degrees after OP. 106 with chair scoot. Walk I on own without AD but avoids knee flexiona dn push off with ankel R until cued, then does fairly well. Trasnfers out adn into chair I with UE. Steps are reciprocal with rail but weak on R and slightly uncomfortable descending adn ascending with R. Quads max tight B and HS mod tight. L knee aROM 0-118. pat yokasta is stiff specifically distally on R, scarring under incision apparent moderately. Incision well healed without drainage or excessive redness , heat or swelling. strength R hip 4 vs 4+ L. knee ext 4+ R adn 5/5 on L flexion and ext. ankles 4+/5 B. mild swelling R knee today and not tender to the touch. - Balance Scores Functional Gait Assessment Score: 28 % Disability: 6.6700 - Goals Goal 1:: Walk a 16 minute mile for 2+ miles without pain. Goal Time Frame: 4-6 Weeks Goal 2:: 0-118 AROM to do stairs without pain Goal Time Frame: 4-6 Weeks Goal 3:: Walk without gait deviations or AD community distance Goal Time Frame: 4-6 Weeks Goal 4:: up and down steps reciprocally without rail Goal Time Frame: 4-6 Weeks Goal 5:: Yard work without noticing knee. Goal Time Frame: 4-6 Weeks - Rehabilitation Potential Physical Therapy Diagnosis: s/p R TKA 12/09 Rehabilitation Potential: Excellent - Anticipated Interventions Patient/Client Instruction: Educate patient on: Condition, Plan of Care For the Purpose of:: To decrease pain, To increase ROM, To increase tolerance to activity/condition/position, To improve ability of physical actions for home/community/work/leisure, To improve gait and locomotor functions Therapeutic Exercise to Include: Strength training, Flexibilty training, Gait and locomotor training, Passive ROM, Active ROM For the Purpose of:: To decrease pain, To increase ROM, To improve muscle performance and motor function, To improve ability of physical actions for home/community/work/leisure, To improve gait and locomotor functions Manual Therapy Techniques to Include: Scar massage, Mobilization For the Purpose of:: To decrease pain, To increase ROM Cryotherapy (ice pack, ice massage): Yes For the Purpose of:: To decrease swelling/inflammation Thank you for the opportunity to evaluate your patient. For Medicare and Medicare HMO plans, please review the plan of care and approve it. It will need to be FAXED BACK to us at [phone] for Medicare purposes. For Medicare only, by signing this I certify the plan of care. Please let me know if there are questions or concerns regarding this plan of care. Physician Signature: Date:
--- NOTE | 2019-02-12 14:58 | HP.PTDCSUM ---
HP - PT D/C Summary It has been my pleasure to treat MONICA RICHARDSON under orders from Davis Gudino DO, for the diagnosis of R TKA 12/09/18 for a total of 19 visit(s). Discharge Date: 02/12/19 Please see the following information for a summary of their discharge status. - Subjective Subjective: Doing great. Walking is good, steps have some discomfort. Tighter in morning but doing well later in day. To doctor next week. Sleep is OK . Activities at home include normal ADLs. Has not mowed yet but I could. Got out of tub this morning without difficulty.Walked a mile and half at a time and takes 33 minutes. - Pain R knee Pain Intensity (Out of 10): 0 - Overall Improvement % Improvement: 99 - Objective Objective/Function: 0-122 PROM, fair patellar mobility. 0-117 AROM. Steps reciprocal without rail or pain. Walks normal. OVERALL DOING VERY WELL AND WILL CONTINUE ON HIS OWN WITH HOME ROM AND GYM STRENGTH EX. - Goals Goal 1:: Walk a 16 minute mile for 2+ miles without pain. Goal Progress: Progressing Goal 2:: 0-118 AROM to do stairs without pain Goal Progress: Goal Met Goal 3:: Walk without gait deviations or AD community distance Goal Progress: Goal Met Goal 4:: up and down steps reciprocally without rail Goal Progress: Goal Met Goal 5:: Yard work without noticing knee. Goal Progress: Progressing - Plan Plan: D/C - D/C Information Discharge Comments: Doing well and will continue I in gym 3x/week adn ROM daily. If there are questions or concerns regarding this patient's physical therapy, please feel free to call me at [phone]. Thank you for the referral of this patient. Sincerely, Christian Jacobs, DPT, OCS, CSCS
== END 2019-02-12 19:00 | disposition home or self-care (01) ==
LOC: PT 14:00
PROVIDERS: Family Provider Family Medicine Geriatric Medicine; PCP Family Medicine Geriatric Medicine; Referring Provider Orthopaedic Surgery; Visit Provider Orthopaedic Surgery
DX: Z47.1 Aftercare following joint replacement surgery (principal)
CPT/HCPCS: 97110; 97140; 97162; 97530

== ENCOUNTER → 2019-02-15 09:06 | Outpatient (CLI) | payer MEDICARE, OTHER, SELFPAY ==
[2019-01-20 09:22] VITALS: BMI 32.1
[2019-02-15 12:20] LABS: Anion Gap 7 (5-15); BUN 23 mg/dL (7-18); BUN/Creat Ratio 19.2 RATIO (10-20); Calcium,Total 8.8 mg/dL (8.5-10.1); Chloride 103 mmol/L (98-107); EST Glomerular Filtration Rate 64 mL/min (>60); Est Glom Filt Rate - Afr Amer 77 mL/min (>60); Glucose 107 mg/dL (74-106); Potassium 3.7 mmol/L (3.5-5.1); Sodium Level 140 mmol/L (136-145)
== END ==
PROVIDERS: Family Provider Family Medicine Geriatric Medicine; PCP Family Medicine Geriatric Medicine; Visit Provider Family Medicine Geriatric Medicine
DX: E87.6 Hypokalemia (principal)
CPT/HCPCS: 36415; 80048

== ENCOUNTER → 2019-05-06 12:07 | Outpatient (CLI) | payer MEDICARE, OTHER, SELFPAY ==
[2019-03-10 08:01] VITALS: BMI 32.1
[2019-05-06 12:38] LABS: Absolute Lymphocyte Count 0.69 X10^3/uL (0.83-4.51); Absolute Neutrophil Count 1.7 X10^3/uL (2.0-7.7); Basophil# 0.01 X10^3/uL; Basophil% 0.3 % (0-1); Eosinophil# 0.03 X10^3/uL; Hematocrit 46.2 % (40-54); Hemoglobin 15.2 g/dL (13.0-16.5); Lymphocyte # 0.69 X10^3/ul (4.0); Lymphocyte % 23.9 % (19-41); Mean Corp Hgb Conc 32.9 g/dL (32-36); Mean Corpuscular Hgb 29.7 pg (27.0-32.0); Mean Corpuscular Volume 90.2 fL (80-94); Mean Platelet Vol. 10.8 fl (6.2-12.0); Monocyte# 0.49 X10^3/uL; NRBC Flagged by Analyzer 0 % (0-5); Neutrophil # 1.66 X10^3/uL (2.7-7.7); Neutrophil % 57.5 % (47-70); Platelet Count 208 K/mm3 (150-450); RBC Distribution Width CV 12.4 % (11.6-14.6); RBC Distribution Width SD 40.9 fl (35.1-43.9); Red Blood Count 5.12 M/mm3 (4.6-6.2); White Blood Count 2.9 K/mm3 (4.4-11.0)
[2019-05-06 12:53] LABS: Anion Gap 5 (5-15); BUN 19 mg/dL (7-18); BUN/Creat Ratio 16.2 RATIO (10-20); Calcium,Total 8.7 mg/dL (8.5-10.1); Chloride 106 mmol/L (98-107); Creatinine, Serum 1.17 mg/dL (0.70-1.30); EST Glomerular Filtration Rate 66 mL/min (>60); Est Glom Filt Rate - Afr Amer 79 mL/min (>60); Glucose 117 mg/dL (74-106); Sodium Level 142 mmol/L (136-145)
== END ==
PROVIDERS: Family Provider Family Medicine Geriatric Medicine; PCP Family Medicine Geriatric Medicine; Visit Provider Family Medicine Geriatric Medicine
DX: Z00.00 Encounter for general adult medical examination without abnormal findings (principal); I10 Essential (primary) hypertension
CPT/HCPCS: 36415; 80048; 85025; 85610

== ENCOUNTER → 2019-05-17 14:16 | Outpatient (CLI) | payer MEDICARE, OTHER, SELFPAY ==
[2019-03-10 08:01] VITALS: BMI 32.1
--- NOTE | 2019-05-17 14:21 | RAD_ITS ---
STUDY: X-RAY - LEFT KNEE REASON FOR EXAM: Male, 68 years old. MEDIAL PAIN, NKI TECHNIQUE: 4 view(s) of the knee. COMPARISON: None. FINDINGS: Moderate to significant osteoarthritis with most prominent involvement along the medial compartment. No significant joint effusion. No acute displaced fracture, or traumatic subluxation based on current assessment.. No gross destructive osseous lesion. The soft tissue structures are unremarkable. RAD/Knee 4 or More Views IMPRESSION: Moderate to significant osteoarthritis. Electronically Signed: Jerry Ramirez MD at 20:48 EST Tel [phone], Service support ,
== END ==
PROVIDERS: Family Provider Family Medicine Geriatric Medicine; PCP Family Medicine Geriatric Medicine; Referring Provider Orthopaedic Surgery; Visit Provider Orthopaedic Surgery
DX: M17.12 Unilateral primary osteoarthritis, left knee (principal)
CPT/HCPCS: 73564

== ENCOUNTER 2019-06-01 10:02 | Observation (INO) | payer MEDICARE, OTHER, SELFPAY ==
[2019-03-10 08:01] VITALS: BMI 32.1
[2019-05-17 14:27] VITALS: BMI 32.1
[2019-05-24 11:12] VITALS: BP 145/84; PULSE 65; RESP 16; TEMP 36.6; O2SAT 95; BMI 33.3
--- NOTE | 2019-05-31 14:22 | HP.PCM_ITS ---
History and Physical Date of Admission: 06/01/19 Intake Vital Signs 03/10/19 Body Mass Index (BMI) 32.1 Intake Visit Reasons: Right Knee Chief Complaint: RTK Allergies chlorpromazine [From Thorazine] Allergy (Severe, Verified 12/10/18 15:54) Other [facility] Medical History (Updated 12/11/18 @ 00:00 by Wayne Carlson) HBP (high blood pressure) (Chronic) Surgical History (Updated 12/08/18 @ 07:17 by Davis Gudino DO) H/O radical prostatectomy (Inactive) History of right hip replacement (Inactive) Social History (Updated 03/10/19 @ 11:37 by Davis Gudino DO) Smoking Status: Former smoker HPI Right Knee: Details: Parts of this documentation were recorded by a scribe, this documentat ion accurately reflects the service provided and the decisions made by me, Davis Gudino DO 03/10/19 0758. MONICA RICHARDSON is a 68 year old M here today for 13 weeks post op from right total knee. Patient has full flexion and extension. Does c/o pain over his quads at times. Denies numbness, tingling or other associated symptoms. No s/sx of infection noted. Patient states he has been walking over 2 miles daily without concern or pain of his right knee but does have pain of his left knee. Patient has had gel-injections of his left knee in the past thru [facility] and states this was effective for awhile. But is wishing to have a definitive joint replacement in May ROS Const Denies weakness Musc Denies joint pain, Denies joint swelling, Denies muscle weakness, Denies numbness, Denies radiating pain into limb, Denies tingling Skin/Breast Denies redness, Denies lesions, Denies itching, Denies rash, Denies skin swelling Neuro No numbness, No tingling, No weakness Ortho Exam Right Knee Date of Surgery: 12/08/18 Skin/Wound: Yes healed, No erythema, No ecchymosis, No swelling Homans Sign: No Knee ROM: Yes ROM-Extension -20 to 0, Yes ROM-Flexion 0-140 Stability: NML: Valgus 30, NML: Varus 30 Apprehension with Lateral Translation: No KNEE: no s/sx of infection Assessment & Plan Problems 1. Orthopedic aftercare Z47.89 Plan Patient educated that he is doing well and he will continue to improve over the next 1-2 years. Patient educated that he should contact our office prior to any dental work or cleanings for a prophylactic ATB. Educated to continue to work on flexion and extension to prevent stiffness. Patient wishes to have a left total knee but does not wishes to have this until the beginning of the year. Follow up in 1 year for x-rays and re-check or for the left knee or sooner if pain, swelling, numbness or associated symptoms, or concerns develop. All questions answered. Patient in agreement of plan. Coding Level of Care Code Global Post Op Diagnoses Orthopedic aftercare Z47.89 I have re-examined the patient. There are no clinical changes since date of exam
[2019-06-01] VITALS (11 sets, daily range): BP systolic 109–148; BP diastolic 63–87; PULSE 66–87; RESP 16–18; TEMP 36.2–36.9; O2SAT 95–99; BMI 33.3
[2019-06-01 06:05] LABS: Bedside Glucose 245 mg/dL (70-110)
[2019-06-01] MEDS: Lactated Ringers 1,000 ML 100 ML IV (06:19)
[2019-06-01] MEDS: Gabapentin 600 MG Tablet PO (06:20)
[2019-06-01] MEDS: Magnesium Sulfate 4gm/100mL 4 GM/100 ML IV.SOLN. IV (06:20)
[2019-06-01] MEDS: Scopolamine 1mg/72hr Patch 1 PATCH TRANSDERM. (06:20)
[2019-06-01] MEDS: Acetaminophen 500 MG Tablet 1000 MG PO ×3 (06:20→21:32)
[2019-06-01] MEDS: Insulin Lispro 100 UNIT/ML INSULN.PEN SC (06:21)
[2019-06-01] MEDS: Cefazolin 2 GM in 0.9% Normal Saline 100 ML IV (07:30)
[2019-06-01] MEDS: dexAMETHasone 10 MG/ML Vial IV (07:52)
[2019-06-01] MEDS: Bupivacaine 0.5% PF 10 ML VIAL (09:05)
[2019-06-01] MEDS: Betamethasone/Betamethasone 30 MG/5 ML Vial (09:05)
[2019-06-01] MEDS: 0.9% Normal Saline (Pres. free 10 ML Vial (09:05)
--- NOTE | 2019-06-01 09:58 | PCM.OPRPT ---
Report of Operation Date of Procedure: 06/01/19 Description of Surgical Findings:: Preoperative diagnosis: Left knee DJD Postoperative diagnosis: Same Procedure: Left total knee arthroplasty Implant: [place] triathlon cemented left femoral component size of an, cemented tibial baseplate size 6 cemented asymmetric patella size 38, polyethylene X3 size 9 CS Anesthesia: Spinal with adductor canal block Tourniquet time: 88 minutes at 300 mmHg Complications: None Condition: Stable to PACU Estimated blood loss: 75 cc Indication for procedure: This is a 68-year-old male with long standing degenerative joint disease of the knee who has failed conservative treatment and wished to proceed with elective total knee arthroplasty. Risk benefits and alternatives were reviewed including; risk of bleeding, infection, nerve artery and tissue damage, continued pain, postoperative stiffness, venous thromboembolism, need for postoperative rehabilitation, mechanical feel to the knee, and expected postoperative course. Procedure: The patient was met in the preoperative holding area. The operative extremity was identified by both patient and physician and was marked. Patient was met by anesthesia. An adductor canal block was placed by anesthesia postoperatively the patient was brought back to the operating room on a wheeled cart and transferred to the operating table in the supine position. Anesthesia was started. A well-padded tourniquet was placed on the operative extremity. The patient was prepped and draped in the usual sterile fashion. A timeout was called to ensure the proper patient procedure and extremity were being contemplated. An Esmarch was used to exsanguinate the extremity. The tourniquet was inflated. A 10 blade scalpel was used to make a midline incision down through the skin and subcutaneous tissue. Skin retractors placed. Bovie was used to perform meticulous hemostasis. full-thickness flaps were elevated medial and lateral along the joint capsule. A deep blade scalpel was used to perform a medial parapatellar arthrotomy. The knee was brought to full extension. A Bovie was used to release the soft tissues off the most proximal aspect of the medial tibial plateau a three-quarter inch curved osteotome was also used for this process. The infrapatellar fat pad was excised. The fat pad was excised partially anterior lateral portion the anterior medial was elevated from the femur. the patella was everted. The knee was brought into flexion. An intramedullary drill was used followed by flexible intramedullary guide bharat. The distal femoral cutting block was placed and set to remove 10 mm of bone and 5 degrees of valgus. The block was secured with pins and an oscillating saw was used to complete the distal femoral cut. During this, and all bony cuts retractors were used to protect the collateral ligaments. At this point a femoral sizer was used to measure the AP dimension of the femur. The sizer block was pinned parallel to the epicondylar access for external rotation. The sizing block was removed and the appropriately sized 4-in-1 cutting block was placed over the previously made pinholes. It was checked with an monique wing and the block was secured with pins. An oscillating saw was used to complete the anterior cut followed by the posterior cut followed by the posterior chamfer cut followed by the anterior chamfer cut. The block was removed as well as the fragments. A ronguer was used to remove excess osteophytes. The medial and lateral meniscus were excised as well as the ACL. At this point a PCL retractor was placed and an intramedullary drill was passed down the tibial canal followed by a solid intramedullary guide bharat. The tibial cutting block was attached and set to remove 9 mm of bone from the high side. This was checked with an external alignment drop bharat for slope and tilt. It was pinned into place. An oscillating saw was used to complete the tibial plateau cut and the block was removed. A large osteotome was used to elevate the fragment and a Oneal and a Bovie were used to free the fragment from the surrounding soft tissue. A rongeur was once again used to remove osteophytes a lamina supervisor boat outfitting was used to evaluate the posterior capsular structures. A three-quarter inch curved osteotome was used to remove posterior osteophytes. A spacer block was inserted in both extension and flexion to ensure adequate spacing. Trials were inserted full extension and flexion were achieved in varus and valgus stability throughout range of motion were seen, balancing techniques were performed. At this point the attention was turned towards the patella. A caliper was used to ensure sufficient bone stock to remove 10 mm of bone. A reamer was used to perform this task. Lug holes were made for the appropriate-sized patella. The patella trial was inserted and there was good patellar tracking after lateral retinacular release with knee range of motion. The tibial baseplate was allowed to float into rotation and was marked on the tibial plateau with a Bovie. Lug holes were made in the femur and trials were removed. The tibial baseplate was then sized and its preparation was completed with a fin punch. The knee was thoroughly irrigated. A posterior capsular injection was performed with our standard cocktail. The knee was brought into flexion and irrigated again. The tibial baseplate was cemented. Excess cement was removed with curettes. The polyethylene component was inserted. The femoral component was cemented. The knee was brought into full extension and placed on a bump. The patellar component was cemented. At this point a Betadine rinse was placed and thoroughly irrigated after a few minutes. This was followed by an Iricept rinse which was allowed to sit for 1 minute and then thoroughly irrigated.At this point all gloves were changed. The knee was thoroughly irrigated the joint capsule was closed with #1 Ethibond. Tourniquet was let down followed by 0 Vicryl and 2-0 Vicryl in the subcutaneous tissues. followed by otilio in the skin. Dressing was applied in the form of Mepilex silver dressing web roll and an Steve wrap from the foot to the groin. The patient tolerated the procedure well, all counts were correct patient was brought back to the PACU in stable condition.
[2019-06-01 10:15] LABS: Bedside Glucose 119 mg/dL (70-110)
--- NOTE | 2019-06-01 10:15 | RAD_ITS ---
STUDY: X-RAY - LEFT KNEE REASON FOR EXAM: Male, 68 years old. POST OP TECHNIQUE: AP and lateral view(s) of the knee. COMPARISON: None. FINDINGS: Normal visualized distal femur. Normal visualized proximal tibia and fibula. Normal proximal tibiofibular articulation. The patient is status post total knee replacement. There is good alignment. Postoperative soft tissue changes. RAD/Knee 1 or 2 Views IMPRESSION: Status post total knee replacement. There is good alignment. Postoperative soft tissue changes. Electronically Signed: Aleks Aviles, at 14:31 EST , Service support ,
[2019-06-01] MEDS: Lactated Ringers 1,000 ML 125 ML IV ×3 (10:19→20:20)
[2019-06-01] MEDS: Cefazolin 1 GM/50 ML BAG IV ×2 (11:09→21:31)
[2019-06-01] MEDS: Ketorolac 15 MG/ML Vial IV (20:20)
[2019-06-01] MEDS: Senna/Docusate Sodium 1 Tablet 2 TABLET PO (21:32)
[2019-06-01] MEDS: oxyCODONE HCl Cr 10 MG Tablet PO (21:32)
[2019-06-01] MEDS: Atorvastatin Calcium 10 MG Tablet PO (21:32)
[2019-06-02 02:00] VITALS: BP 117/68; PULSE 67; RESP 18; TEMP 36.8; O2SAT 94
[2019-06-02 05:17] LABS: Hematocrit 38.2 % (40-54); Hemoglobin 12.8 g/dL (13.0-16.5); Mean Corp Hgb Conc 33.5 g/dL (32-36); Mean Corpuscular Hgb 29.7 pg (27.0-32.0); Mean Corpuscular Volume 88.6 fL (80-94); Mean Platelet Vol. 10.8 fl (6.2-12.0); Platelet Count 210 K/mm3 (150-450); RBC Distribution Width CV 12.4 % (11.6-14.6); RBC Distribution Width SD 40.6 fl (35.1-43.9); Red Blood Count 4.31 M/mm3 (4.6-6.2); White Blood Count 9.9 K/mm3 (4.4-11.0)
[2019-06-02] MEDS: Cefazolin 1 GM/50 ML BAG IV (05:17)
[2019-06-02] MEDS: Acetaminophen 500 MG Tablet 1000 MG PO (05:18)
[2019-06-02 05:34] LABS: Anion Gap 7 (5-15); BUN 24 mg/dL (7-18); Calcium,Total 8.1 mg/dL (8.5-10.1); Chloride 102 mmol/L (98-107); Creatinine, Serum 1.41 mg/dL (0.70-1.30); EST Glomerular Filtration Rate 53 mL/min (>60); Est Glom Filt Rate - Afr Amer 64 mL/min (>60); Estimated Creatinine Clearance 54.27 ml/min; Glucose 137 mg/dL (74-106); Potassium 4.1 mmol/L (3.5-5.1); Sodium Level 136 mmol/L (136-145)
[2019-06-02] MEDS: APIXABAN 2.5 MG TABLET PO ×2 (06:21→07:51)
[2019-06-02] MEDS: Senna/Docusate Sodium 1 Tablet 2 TABLET PO (07:51)
[2019-06-02] MEDS: hydroCHLOROthiazide 25 MG Tablet PO (07:52)
[2019-06-02] MEDS: Multivitamins,Ther W-Minerals Tablet 1 TABLET PO (07:54)
--- NOTE | 2019-06-02 08:04 | DCINST_ITS ---
Discharge Diet: No Restrictions Weight Bearing Status: Weight bearing as tolerated Call your doctor if you observe: Shortness of breath Additional Instructions: Ice and elevate next week while not ambulating. Encourage ambulation weightbearing as tolerated. Encourage FULL knee extension and flexion 1 time EVERY time you get up and down and MULTIPLE times per day. Begin showering postop day #3. Remove the dressing prior to shower gently wash with warm water and antibacterial soap then pat dry place ABD pad and AMRIT hose over top. This is to be done daily. do not submerge for 3 weeks. If not showering daily must clean incision and change dressing daily. Do not allow animals near incision keep clean. Follow anticoagulation recommendations. Start physical therapy as directed in the hospital. call Dr. Gudino with any concerns. Allergies/Adverse Reactions: Allergies chlorpromazine [From Thorazine] Allergy (Severe, Verified 06/01/19 06:00) Other Hallucinations Medications to take at Discharge hydrochlorothiazide 25 mg tablet 25 mg PO DAILY 90 Days #90 tab 09/28/18 simvastatin 20 mg tablet 20 mg PO QHS 90 Days #90 tab 09/28/18 Calcium/Magnesium/Vitamin D3 [Kb-Mag Complex 300-150 mg Tab] 1 ea PO DAILY 11/18/18 Multivitamin with Minerals [Multiple Vitamin] 1 ea PO DAILY 11/18/18 Vit A/Vit C/Vit E/Zinc/Copper [Preservision Areds Softgel] 1 ea PO DAILY 11/18/18 Potassium Chloride [K-Dur] 10 meq PO DAILY 05/24/19 Acetaminophen [Tylenol] 1,000 mg PO Q6H PRN #100 tab 06/02/19 Apixaban [Eliquis] 2.5 mg PO BID #28 tab 06/02/19 Oxycodone [Oxyir] 5 - 10 mg PO Q4H PRN PRN #60 tablet 06/02/19 The following prescriptions were given: Apixaban [Eliquis] 2.5 mg PO BID #28 tab Transmission Status: Pending to [facility] Oxycodone [Oxyir] 5 - 10 mg PO Q4H PRN PRN #60 tablet PRN Reason: Mild-Mod Pain (-10/02) Transmission Status: Received by [facility] Acetaminophen [Tylenol] 1,000 mg PO Q6H PRN #100 tab Transmission Status: Pending to [facility] Primary Care Physician: Anoop Love Chi, MD [Primary Care Provider] - Test Results: Test results from this visit will be discussed in further detail at your follow- up appointment, if applicable. Please Follow Up With: Davis Gudino DO - 2 weeks
--- NOTE | 2019-06-02 08:06 | PCM.DC.SUM ---
Discharge Date and Diagnosis Date of Admission: 06/01/19 Date of Discharge: 06/02/19 - Primary Discharge Diagnosis The patient has with long-standing history of knee DJD and has failed conservative treatment. Patient wished to undergo elective total knee arthroplasty and underwent the aforementioned procedure on the admission date without complications. patient did receive pre-and postoperative antibiotics which were discontinued within 23 hours postoperatively. patient did receive a spinal anesthesia and a adductor canal block and the pain was controlled postoperatively with p.o. and IV pain medication. There was minimal intraoperative blood loss he did receive 2 g of tranexamic acid and his vital signs and labs were stable postoperatively and patient did not require a blood transfusion. patient was seen by physical therapy and did progress with his ambulation. Postoperatively was started on both mechanical and chemical DVT prophylaxis for which patient will continue Eliquis 2.5 mg twice daily for 2 additional weeks post hospital discharge. Patient Steve wrap was removed in the morning of postop day 1 without any concerning signs. Silverlon dressing will stay on for 72 hours postoperatively at which time patient will begin showering on postop day #3 with daily dressing changes. Encouraged patient to achieve full range of motion as soon as possible, Patient will start outpatient physical therapy and will follow-up in the office in 2 weeks for wound check. There is no intrahospital complications . Hospital Course and Treatment Summary of Care Provided: The patient is a 68 year old M [] - Physical Exam Vitals/I&O's: Vital Signs Temp Pulse Resp BP Pulse Ox 98.3 F 67 18 117/68 94 06/02/19 02:00 06/02/19 02:00 06/02/19 02:00 06/02/19 02:00 06/02/19 02:00 Oxygen Flow Rate (L/min) 6 Oxygen Delivery Method Room Air Weight: 245 lb 9.519 oz Body Mass Index (BMI) 33.3 Finger Stick Blood Glucose 118 Intake and Output for Last 24 Hours 05/31/19 06/01/19 06/02/19 23:59 23:59 23:59 Intake Total 3582.09 / 3582.09 900 / 900 Output Total 50 / 450 400 / 400 Balance 3532.09 / 3132.09 500 / 500 General: Alert, Oriented x3, Cooperative, No apparent distress Extremities: - - Dressing clean dry and intact apartment soft neurovascular intact Laboratory Results 06/01/19 10:11: POC Glucose 119 H 06/02/19 04:44: WBC 9.9, RBC 4.31 L, Hgb 12.8 L, Hct 38.2 L, MCV 88.6, MCH 29.7, MCHC 33.5, RDW Std Deviation 40.6, RDW Coeff of Srinivas 12.4, Plt Count 210, MPV 10.8 06/02/19 04:44: Sodium 136, Potassium 4.1, Chloride 102, Carbon Dioxide 27.0, Anion Gap 7, BUN 24 H, Creatinine 1.41 H, Estim Creat Clear Calc 54.27, Est GFR (MDRD) Af Amer 64, Est GFR (MDRD) Non-Af 53 L, BUN/Creatinine Ratio 17.0, Glucose 137 H, Calcium 8.1 L Current Medications Acetaminophen (Tylenol) 1,000 mg PO Q8 [facility] Last Admin: 06/02/19 05:18 Dose: 1,000 mg Documented by: Apixaban (Eliquis) 2.5 mg PO BID [facility] Last Admin: 06/02/19 07:51 Dose: 2.5 mg Documented by: Atorvastatin Calcium (Lipitor) 10 mg PO QHS [facility] Last Admin: 06/01/19 21:32 Dose: 10 mg Documented by: Hydrochlorothiazide (Hctz) 25 mg PO DAILY [facility] Last Admin: 06/02/19 07:52 Dose: 25 mg Documented by: Hydromorphone HCl (Dilaudid Inj) 0.5 mg IV Q2H PRN PRN PRN Reason: BREAKTHROUGH PAIN (>4/10) Insulin Human Lispro (Humalog Jankipen (Bkc)) 1 - 6 unit SC Q4H PRN PRN; Protocol PRN Reason: BG>/= 180, SEE PROTOCOL Last Admin: 06/01/19 06:21 Dose: 2 units Documented by: Ketorolac Tromethamine (Toradol) 15 mg IV Q6H PRN PRN PRN Reason: Pain Score 1-5/10 Stop: 06/03/19 10:05 Last Admin: 06/01/19 20:20 Dose: 15 mg Documented by: Multivitamins/Minerals ([facility] Minerals) [facility] Admin: 06/02/19 07:54 Dose: 1 tablet Documented by: Ondansetron HCl (Zofran) 4 mg IV Q6H PRN PRN PRN Reason: NAUSEA Oxycodone HCl (Oxycontin) 10 mg PO BID [facility] Last Admin: 06/01/19 21:32 Dose: 10 mg Documented by: Oxycodone HCl (Oxyir) 5 - 10 mg PO Q4H PRN PRN PRN Reason: Pain Score 1-5/10 Potassium Chloride (K-Dur) 10 meq PO DAILY [facility] Last Admin: 06/02/19 07:52 Dose: 10 meq Documented by: Senna/Docusate Sodium (Senokot-S, Tere-Colace) 2 tablet PO BID [facility] Last Admin: 06/02/19 07:51 Dose: 2 tablet Documented by: Sodium Chloride () 5 - 15 ml IV UD PRN PRN Reason: SALINE FLUSH Sodium Chloride () 10 - 40 ml IV UD PRN PRN Reason: SALINE FLUSH Discharge Diet: No Restrictions Weight Bearing Status: Weight bearing as tolerated Call your doctor if you observe: Shortness of breath Home Medications: Medications to take at Discharge hydrochlorothiazide 25 mg tablet 25 mg PO DAILY 90 Days #90 tab 09/28/18 simvastatin 20 mg tablet 20 mg PO QHS 90 Days #90 tab 09/28/18 Calcium/Magnesium/Vitamin D3 [Kb-Mag Complex 300-150 mg Tab] 1 ea PO DAILY 11/18/18 Multivitamin with Minerals [Multiple Vitamin] 1 ea PO DAILY 11/18/18 Vit A/Vit C/Vit E/Zinc/Copper [Preservision Areds Softgel] 1 ea PO DAILY 11/18/18 Potassium Chloride [K-Dur] 10 meq PO DAILY 05/24/19 Acetaminophen [Tylenol] 1,000 mg PO Q6H PRN #100 tab 06/02/19 Apixaban [Eliquis] 2.5 mg PO BID #28 tab 06/02/19 Oxycodone [Oxyir] 5 - 10 mg PO Q4H PRN PRN #60 tablet 06/02/19 Following Prescrptions Were Given to Patient: Apixaban [Eliquis] 2.5 mg PO BID #28 tab Transmission Status: Pending to [id number] Oxycodone [Oxyir] 5 - 10 mg PO Q4H PRN PRN #60 tablet PRN Reason: Mild-Mod Pain (1-5/10) Transmission Status: Received by [facility] Acetaminophen [Tylenol] 1,000 mg PO Q6H PRN #100 tab Transmission Status: Pending to [id number] [facility] Primary Care Physician: Anoop Love Chi, MD [Primary Care Provider] - Please Follow Up With: Davis Gudino, - 2 weeks Additional Instructions: Ice and elevate next week while not ambulating. Encourage ambulation weightbearing as tolerated. Encourage FULL knee extension and flexion 1 time EVERY time you get up and down and MULTIPLE times per day. Begin showering postop day #3. Remove the dressing prior to shower gently wash with warm water and antibacterial soap then pat dry place ABD pad and AMRIT hose over top. This is to be done daily. do not submerge for 3 weeks. If not showering daily must clean incision and change dressing daily. Do not allow animals near incision keep clean. Follow anticoagulation recommendations. Start physical therapy as directed in the hospital. call Dr. Gudino with any concerns. Medical Necessity - Tobacco Use Smoking Status: Former smoker Tobacco Use: Non-smoker Meaningful Use Info Meaningful Use Diagnoses (Choose all that apply): None applicable
[2019-06-02 08:11] VITALS: BP 115/65; PULSE 66; RESP 16; TEMP 36.2; O2SAT 96
--- NOTE | 2019-06-02 09:45 | CASEMGMT ---
LUCAS PEDRAZA Face to Face with patient for initial transition planning/care coordination assessment. RN MILO introduced self and role at [facility]. Patient sitting in chair, alert and oriented. Patient willing to participate in assessment and is able to answer all questions appropriately. Care providers, pharmacy, and demographics verified. Patient wishes to discharge home and is setup with outpatient therapy at [facility]. Patient states he has no further needs or concerns at this time. CM to follow for discharge planning needs that may arise. PCP: Ivan Specialists: Terese Hoffman Pharmacy: [facility] Insurance: [facility] Prescription Benefit: yes Living Will/HPOA: Yes, Juju LNOK: , daughter Living Arrangements: Patient lives with in 2 story home. Patient able to ambulates stairs, has railing. Transportation: , daughter DME/HHC: Patient cane and walker at home. Patient is scheduled for outpatient therapy at [facility] 06/03/19. Disposition Plan: Patient to discharge home with outpatient therapy, family support, and follow-up plans in place. Catarina JACKSON, RN, CM
[2019-06-02] MEDS: oxyCODONE HCl Cr 10 MG Tablet PO (09:59)
[2019-06-02 11:53] VITALS: BP 122/66; PULSE 60; RESP 16; TEMP 36.6; O2SAT 98
== END 2019-06-02 13:48 | disposition home or self-care (01) ==
LOC: SDC 10:24 → MS3 10:24
PROVIDERS: Admitting Provider Orthopaedic Surgery; Family Provider Family Medicine Geriatric Medicine; PCP Family Medicine Geriatric Medicine; Referring Provider Orthopaedic Surgery; Visit Provider Orthopaedic Surgery
PROC: (CPT 27447; principal; 2019-06-01 07:05)
DX: M17.12 Unilateral primary osteoarthritis, left knee (principal); I10 Essential (primary) hypertension; Z87.891 Personal history of nicotine dependence; E78.00 Pure hypercholesterolemia, unspecified; K21.9 Gastro-esophageal reflux disease without esophagitis; Z79.899 Other long term (current) drug therapy
CPT/HCPCS: 27447; 64447; 36415; 73560; 80048; 82962; 85027; 87081; 96361; 96365; 96366; 96375; 97110; 97116; 97162; 97166; 97530; 97535; 99218; C1776; J7120; G0378; G0379; J0702; J3490

== ENCOUNTER → 2019-06-10 12:22 | Outpatient (CLI) | payer MEDICARE, OTHER, SELFPAY ==
[2019-06-01 11:36] VITALS: BMI 33.3
[2019-06-10 13:00] LABS: Absolute Lymphocyte Count 0.98 X10^3/uL (0.83-4.51); Absolute Neutrophil Count 7.7 X10^3/uL (2.0-7.7); Basophil# 0.03 X10^3/uL; Basophil% 0.3 % (0-1); Eosinophil# 0.04 X10^3/uL; Eosinophils% 0.4 % (0-5); Hematocrit 39.9 % (40-54); Lymphocyte # 0.98 X10^3/ul (4.0); Lymphocyte % 9.4 % (19-41); Mean Corp Hgb Conc 32.6 g/dL (32-36); Mean Corpuscular Hgb 28.9 pg (27.0-32.0); Mean Corpuscular Volume 88.7 fL (80-94); Mean Platelet Vol. 9.9 fl (6.2-12.0); Monocyte# 1.16 X10^3/uL; Monocyte% 11.2 % (0-10); NRBC Flagged by Analyzer 0 % (0-5); Platelet Count 356 K/mm3 (150-450); RBC Distribution Width CV 12.5 % (11.6-14.6); RBC Distribution Width SD 40.6 fl (35.1-43.9); White Blood Count 10.4 K/mm3 (4.4-11.0)
== END ==
PROVIDERS: PCP Family Medicine Geriatric Medicine; Visit Provider Family Medicine Geriatric Medicine
DX: D64.9 Anemia, unspecified (principal)
CPT/HCPCS: 36415; 85025

== ENCOUNTER → 2019-08-04 09:20 | Outpatient (CLI) | payer MEDICARE, OTHER, SELFPAY ==
[2019-07-21 09:32] VITALS: BMI 33.3
[2019-08-04 11:13] LABS: Absolute Lymphocyte Count 0.38 X10^3/uL (0.83-4.51); Absolute Neutrophil Count 1.2 X10^3/uL (2.0-7.7); Basophil# 0.01 X10^3/uL; Basophil% 0.5 % (0-1); Eosinophil# 0.02 X10^3/uL; Hematocrit 42.2 % (40-54); Lymphocyte # 0.38 X10^3/ul (4.0); Lymphocyte % 18.2 % (19-41); Mean Corp Hgb Conc 33.2 g/dL (32-36); Mean Corpuscular Hgb 29.5 pg (27.0-32.0); Mean Corpuscular Volume 88.8 fL (80-94); Mean Platelet Vol. 10.8 fl (6.2-12.0); Monocyte# 0.45 X10^3/uL; Monocyte% 21.5 % (0-10); NRBC Flagged by Analyzer 0 % (0-5); Neutrophil # 1.22 X10^3/uL (2.7-7.7); Neutrophil % 58.3 % (47-70); POSITIVE DIFFERENTIAL YES; Platelet Count 204 K/mm3 (150-450); RBC Distribution Width CV 12.8 % (11.6-14.6); RBC Distribution Width SD 41.9 fl (35.1-43.9); Red Blood Count 4.75 M/mm3 (4.6-6.2); White Blood Count 2.1 K/mm3 (4.4-11.0)
[2019-08-04 11:39] LABS: ALB/GLOB Ratio 1.1 RATIO (0.9-2.4); AST(SGOT) 20 U/L (15-37); Alanine Aminotransfer ALT/SGPT 25 U/L (16-61); Albumin, Serum 3.7 g/dL (3.2-5.0); Alkaline Phosphatase 87 U/L (45-117); Anion Gap 5 (5-15); BUN 19 mg/dL (7-18); BUN/Creat Ratio 17.4 RATIO (10-20); Calcium,Total 8.7 mg/dL (8.5-10.1); Chloride 104 mmol/L (98-107); Creatinine, Serum 1.09 mg/dL (0.70-1.30); Differential Indicated SCAN CRITERIA MET; EST Glomerular Filtration Rate 71 mL/min (>60); Est Glom Filt Rate - Afr Amer 86 mL/min (>60); Globulin 3.4 g/dL (2.2-4.2); Glucose 103 mg/dL (74-106); Potassium 3.8 mmol/L (3.5-5.1); Protein, Total 7.1 g/dL (6.4-8.2); Sodium Level 139 mmol/L (136-145)
[2019-08-04 11:53] LABS: Platelet Estimate ADEQUATE (ADEQ); Red Cell Morphology NORM C+C NORMAL (NORM C&C)
[2019-08-05 09:46] LABS: Pathologist Review Reviewed
== END ==
PROVIDERS: PCP Family Medicine Geriatric Medicine; Visit Provider Family Medicine Geriatric Medicine
DX: I10 Essential (primary) hypertension (principal)
CPT/HCPCS: 36415; 80053; 84443; 85025

== ENCOUNTER 2019-10-22 13:00 | Outpatient (RCR) | payer MEDICARE, OTHER, SELFPAY ==
[2019-03-10 08:01] VITALS: BMI 32.1
[2019-06-01 11:36] VITALS: BMI 33.3
--- NOTE | 2019-06-03 12:27 | HP.PTEVAL ---
Patient's Visit Information MONICA RICHARDSON is a 68 year old M referred to Physical Therapy by Davis Gudino DO with a diagnosis of L TKA. Date of Evaluation: 06/03/19 Physical Therapist: Samir Jimenez PT, ATC - Visit Plan Frequency: 2-3x /Week Duration: 6 Weeks Plan: L knee PROM/mobs, stretching and strengthening, balance and proprio, core strengthneing, bike, and HEP - Subjective Findings: DOS:06/01/18. Pt reports he had L knee pain for several years. Pt reports he is glad to have had the surgery as he knows there is a light at the end of the tunnel. Pt reports he is still very sore at this time. Pt reports leaving the hospital with 93 degrees of L knee flexion. Pt reports he was in the hospital for 1 1/2 days, and is now home. Pt reports he lives in a 2 story house and has to negotiate stairs one step at a time. Pt reports he was an avid walker prior to having this surgery. Pt is currently retired at this time. Pt reports sleep difficulty secondary to pain. Pt reports he just started taking the meds last night, so he is sore today. 2/10 pain at rest, 5/10 pain with bed transfers. - Pain L TKA Pain Intensity (Out of 10): 2 Pain Intensity Range: 5 - Objective Neuro: B LE sensation is WNL to light touch. B achilles reflex= 2/3. Observation: Incision still covered. No obvious signs of infection. Mild swelling noted. Girth at joint line: L knee 43 cm, R knee 46 cm. ROM: R knee 0-95 degrees, 0-8-70 degrees. MMT: R LE 5/5 throughout. L knee 3/5 throughout - Goals Goal 1:: Decrease L knee pain x 50% to aid with sleep Goal Time Frame: 4-6 Weeks Goal 2:: Increase L knee ROM x 20-30 degrees to aid with restoring a more normal gait pattern Goal Time Frame: 4-6 Weeks Goal 3:: Increase L knee strength x 1 grade to aid with stair negotiation Goal Time Frame: 4-6 Weeks Goal 4:: I with HEP Goal Time Frame: 4-6 Weeks - Rehabilitation Potential Physical Therapy Diagnosis: L knee pain, swelling, and limited ROM secondary to L TKA Rehabilitation Potential: Good - Anticipated Interventions Patient/Client Instruction: Educate patient on: Condition, Plan of Care For the Purpose of:: To improve self management Therapeutic Exercise to Include: Strength training, Endurance training, Balance training, Flexibilty training, Gait and locomotor training, Passive ROM, Active ROM, Dynamic Lumbar Stabilization For the Purpose of:: To decrease pain, To increase ROM, To improve muscle performance and motor function Cryotherapy (ice pack, ice massage): Yes For the Purpose of:: To decrease pain Thank you for the opportunity to evaluate your patient. For Medicare and Medicare HMO plans, please review the plan of care and approve it. It will need to be FAXED BACK to us at [phone] for Medicare purposes. For Medicare only, by signing this I certify the plan of care. Please let me know if there are questions or concerns regarding this plan of care. Physician Signature: Date:
--- NOTE | 2019-07-16 12:33 | HP.PTREVAL ---
Davis Gudino, DO, It has been my pleasure to treat MONICA RICHARDSON over the last 19 visits for L TKA. Please see the progress note below for an update on the physical therapy plan of care! Subjective: Pt reports he continues to improve. Objective/Function: L knee pain ranges from 2-4/10. L knee ROM: 0-115 degrees. L knee MMT: 4/5 throughout. Pt is progressing well towards Rx goals Plan Plan: Cont with L knee PROM/mobs, stretching and strengthening, balance and proprio, core strengthneing, bike, and HEP Goals Goal 1:: Decrease L knee pain x 50% to aid with sleep Goal Time Frame: 4-6 Weeks Goal Progress: Goal Met Goal 2:: Increase L knee ROM x 20-30 degrees to aid with restoring a more normal gait pattern Goal Time Frame: 4-6 Weeks Goal Progress: Progressing Goal 3:: Increase L knee strength x 1 grade to aid with stair negotiation Goal Time Frame: 4-6 Weeks Goal Progress: Progressing Goal 4:: I with HEP Goal Time Frame: 4-6 Weeks Goal Progress: Progressing Anticipated Interventions Patient/Client Instruction: Educate patient on: Condition, Plan of Care For the Purpose of:: To improve self management Therapeutic Exercise to Include: Strength training, Endurance training, Balance training, Flexibilty training, Gait and locomotor training, Passive ROM, Active ROM, Dynamic Lumbar Stabilization For the Purpose of:: To decrease pain, To increase ROM, To improve muscle performance and motor function Cryotherapy (ice pack, ice massage): Yes For the Purpose of:: To decrease pain Please do not hesitate to contact me at [phone] by phone or if you have questions or concerns regarding this new plan of care! Sincerely, Samir Jimenez, PT, ATC
--- NOTE | 2019-09-21 12:02 | HP.PTREVAL ---
Davis Gudino, DO, It has been my pleasure to treat MONICA RICHARDSON over the last 25 visits for L TKA. Please see the progress note below for an update on the physical therapy plan of care! Subjective: L knee is still sore. still having difficulty with stair negotiation Objective/Function: L knee pain 2/10 currently, 4/10 with stair negotiation. L knee ROM: 0-4-107. L knee MMT: flex= 4-/5, ext= 4/5. Pt is progressing well but still lacks functional strength and ROM Plan Plan: Cont with POC Goals Goal 1:: Decrease L knee pain x 50% to aid with sleep Goal Time Frame: 4-6 Weeks Goal Progress: Goal Met Goal 2:: Increase L knee ROM x 20-30 degrees to aid with restoring a more normal gait pattern Goal Time Frame: 4-6 Weeks Goal Progress: Progressing Goal 3:: Increase L knee strength x 1 grade to aid with stair negotiation Goal Time Frame: 4-6 Weeks Goal Progress: Progressing Goal 4:: I with HEP Goal Time Frame: 4-6 Weeks Goal Progress: Progressing Anticipated Interventions Patient/Client Instruction: Educate patient on: Condition, Plan of Care For the Purpose of:: To improve self management Therapeutic Exercise to Include: Strength training, Endurance training, Balance training, Flexibilty training, Gait and locomotor training, Passive ROM, Active ROM, Dynamic Lumbar Stabilization For the Purpose of:: To decrease pain, To increase ROM, To improve muscle performance and motor function Cryotherapy (ice pack, ice massage): Yes For the Purpose of:: To decrease pain Please do not hesitate to contact me at [phone] by phone or if you have questions or concerns regarding this new plan of care! Sincerely, Samir Jimenez, PT, ATC
--- NOTE | 2019-10-22 13:20 | HP.PTDCSUM ---
It has been my pleasure to treat MONICA RICHARDSON referred by Dr. Davis Gudino DO, with the diagnosis of L TKA for a total of 37 visit(s). Discharge Date: 10/22/19 Please see the following information for a summary of their discharge status. Subjective: L knee is 1/2 out of ten. Has been good lately. Notices it mostly on steps up and down. Sitting long time and gettign up can be stiff. Push mow lawn without difficulty. Sleep is OK. Retired. Actiivities at home are aproaching normal other than getting down on knees with grandkids. No concerns with d/c. L TKA Pain Intensity (Out of 10): 0 % Improvement: 85 Objective/Function: Walks well and normal. 0-120 PROM, 0-115 AROM today, SLR without lag. 5/5 knee flexiona dn extension strength B. Steps reciprocal without rail or pain. Good solid balance. Overall looking good. Goal 1:: Decrease L knee pain x 50% to aid with sleep Goal Progress: Goal Met Goal 2:: Increase L knee ROM x 20-30 degrees to aid with restoring a more normal gait pattern Goal Progress: Goal Met Goal 3:: Increase L knee strength x 1 grade to aid with stair negotiation Goal Progress: Goal Met Goal 4:: I with HEP Goal Progress: Goal Met Plan: d/c If there are questions or concerns regarding this patient's physical therapy, please feel free to call me at [phone]. Thank you for the referral of this patient. Sincerely, Christian Jacobs, DPT, OCS, CSCS
== END 2019-10-22 19:00 | disposition home or self-care (01) ==
LOC: PT 13:00
PROVIDERS: Family Provider Family Medicine Geriatric Medicine; PCP Family Medicine Geriatric Medicine; Referring Provider Orthopaedic Surgery; Visit Provider Orthopaedic Surgery
DX: Z98.890 Other specified postprocedural states (principal)
CPT/HCPCS: 97110; 97140; 97161; 97164

== ENCOUNTER → 2020-02-09 10:01 | Outpatient (CLI) | payer MEDICARE, OTHER, SELFPAY ==
[2019-10-20 08:26] VITALS: BMI 33.3
[2020-02-09 12:28] LABS: Absolute Lymphocyte Count 0.59 X10^3/uL (0.83-4.51); Absolute Neutrophil Count 2.2 X10^3/uL (2.0-7.7); Basophil# 0.01 X10^3/uL; Basophil% 0.3 % (0-1); Eosinophil# 0.05 X10^3/uL; Eosinophils% 1.4 % (0-5); Hematocrit 46.5 % (40-54); Hemoglobin 15.2 g/dL (13.0-16.5); Lymphocyte # 0.59 X10^3/ul (4.0); Lymphocyte % 17.1 % (19-41); Mean Corp Hgb Conc 32.7 g/dL (32-36); Mean Corpuscular Hgb 29.3 pg (27.0-32.0); Mean Corpuscular Volume 89.8 fL (80-94); Mean Platelet Vol. 11.4 fl (6.2-12.0); Monocyte% 17.3 % (0-10); NRBC Flagged by Analyzer 0 % (0-5); Neutrophil # 2.19 X10^3/uL (2.7-7.7); Neutrophil % 63.3 % (47-70); POSITIVE DIFFERENTIAL YES; Platelet Count 217 K/mm3 (150-450); RBC Distribution Width CV 12.3 % (11.6-14.6); RBC Distribution Width SD 40.5 fl (35.1-43.9); Red Blood Count 5.18 M/mm3 (4.6-6.2); White Blood Count 3.5 K/mm3 (4.4-11.0)
[2020-02-09 12:50] LABS: Differential Indicated SCAN CRITERIA MET
[2020-02-09 12:56] LABS: ALB/GLOB Ratio 1.1 RATIO (0.9-2.4); AST(SGOT) 22 U/L (15-37); Alanine Aminotransfer ALT/SGPT 28 U/L (16-61); Albumin, Serum 3.7 g/dL (3.2-5.0); Alkaline Phosphatase 72 U/L (45-117); Anion Gap 5 (5-15); BUN 17 mg/dL (7-18); BUN/Creat Ratio 12.1 RATIO (10-20); Calcium,Total 8.8 mg/dL (8.5-10.1); Chloride 99 mmol/L (98-107); EST Glomerular Filtration Rate 53 mL/min (>60); Est Glom Filt Rate - Afr Amer 64 mL/min (>60); Globulin 3.5 g/dL (2.2-4.2); Glucose 120 mg/dL (74-106); PSA,Total - Annual Screen < 0.01 ng/mL (0.00-4.00); Potassium 3.9 mmol/L (3.5-5.1); Protein, Total 7.2 g/dL (6.4-8.2); Sodium Level 136 mmol/L (136-145); Thyroid Stim Hormone (TSH) 2.63 uIU/mL (0.358-3.74)
[2020-02-10 12:33] LABS: Pathologist Review Reviewed
== END ==
PROVIDERS: PCP Family Medicine Geriatric Medicine; Visit Provider Family Medicine Geriatric Medicine
DX: I10 Essential (primary) hypertension (principal); E55.9 Vitamin D deficiency, unspecified; Z12.5 Encounter for screening for malignant neoplasm of prostate
CPT/HCPCS: 36415; 80053; 82306; 84153; 84443; 85025; G0103

== ENCOUNTER → 2020-02-24 | Outpatient (CLI) | payer MEDICARE, OTHER, SELFPAY ==
[2019-10-20 08:26] VITALS: BMI 33.3
== END | disposition home or self-care (01) ==
LOC: POLAB3 16:56 → LABSPEC 16:58
PROVIDERS: PCP Family Medicine Geriatric Medicine; Visit Provider Family Medicine Geriatric Medicine
DX: N39.0 Urinary tract infection, site not specified (principal)
CPT/HCPCS: 87086; 87088

== ENCOUNTER 2020-07-24 17:00 | Outpatient (RCR) | payer MEDICARE, OTHER, SELFPAY | END 2020-07-24 23:59 | LOC: IMMUN 17:00 | PROVIDERS: PCP Family Medicine Geriatric Medicine; Referring Provider Family Medicine; Visit Provider Family Medicine | DX: Z23 Encounter for immunization (principal) | CPT/HCPCS: 0011A; 0012A ==

== ENCOUNTER → 2020-08-09 13:01 | Outpatient (CLI) | payer MEDICARE, OTHER, SELFPAY ==
[2020-08-09 17:08] LABS: Absolute Neutrophil Count 3.3 X10^3/uL (2.0-7.7); Basophil# 0.01 X10^3/uL; Basophil% 0.2 % (0-1); Eosinophil# 0.04 X10^3/uL; Eosinophils% 0.8 % (0-5); Hematocrit 44.8 % (40-54); Hemoglobin 14.9 g/dL (13.0-16.5); Lymphocyte % 16.2 % (19-41); Mean Corp Hgb Conc 33.3 g/dL (32-36); Mean Corpuscular Hgb 29.7 pg (27.0-32.0); Mean Corpuscular Volume 89.4 fL (80-94); Mean Platelet Vol. 11.6 fl (6.2-12.0); Monocyte# 0.73 X10^3/uL; Monocyte% 14.8 % (0-10); NRBC Flagged by Analyzer 0 % (0-5); Neutrophil # 3.32 X10^3/uL (2.7-7.7); Neutrophil % 67.4 % (47-70); Platelet Count 238 K/mm3 (150-450); RBC Distribution Width CV 12.5 % (11.6-14.6); RBC Distribution Width SD 41.1 fl (35.1-43.9); Red Blood Count 5.01 M/mm3 (4.6-6.2); White Blood Count 4.9 K/mm3 (4.4-11.0)
[2020-08-09 17:22] LABS: Vitamin D,25 Hydroxy 46.8 ng/mL
[2020-08-09 18:55] LABS: ALB/GLOB Ratio 1.1 RATIO (0.9-2.4); AST(SGOT) 21 U/L (15-37); Alanine Aminotransfer ALT/SGPT 31 U/L (16-61); Albumin, Serum 3.8 g/dL (3.2-5.0); Alkaline Phosphatase 113 U/L (45-117); Anion Gap 7 (5-15); BUN 25 mg/dL (7-18); BUN/Creat Ratio 18.7 RATIO (10-20); Calcium,Total 8.9 mg/dL (8.5-10.1); Chloride 101 mmol/L (98-107); Creatinine, Serum 1.34 mg/dL (0.70-1.30); EST Glomerular Filtration Rate 56 mL/min (>60); Est Glom Filt Rate - Afr Amer 68 mL/min (>60); Globulin 3.4 g/dL (2.2-4.2); Glucose 90 mg/dL (74-106); Potassium 3.7 mmol/L (3.5-5.1); Protein, Total 7.2 g/dL (6.4-8.2); Sodium Level 138 mmol/L (136-145); Thyroid Stim Hormone (TSH) 2.15 uIU/mL (0.358-3.74)
== END ==
PROVIDERS: PCP Family Medicine Geriatric Medicine; Visit Provider Family Medicine Geriatric Medicine
DX: I10 Essential (primary) hypertension (principal); E55.9 Vitamin D deficiency, unspecified
CPT/HCPCS: 36415; 80053; 82306; 84443; 85025

== ENCOUNTER → 2021-02-05 | Outpatient (CLI) | payer MEDICARE, OTHER, SELFPAY | END | disposition home or self-care (01) | LOC: LABSPEC 02-06 09:52 | PROVIDERS: PCP Family Medicine Geriatric Medicine; Referring Provider Physician Assistant Surgical; Visit Provider Physician Assistant Surgical | DX: Z20.828 Contact with and (suspected) exposure to other viral communicable diseases (principal) | CPT/HCPCS: 87635; U0005; U0003 ==

== ENCOUNTER → 2021-02-09 12:33 | Outpatient (CLI) | payer MEDICARE, OTHER, SELFPAY ==
[2020-12-27 17:11] VITALS: BMI 33.3
== END ==
PROVIDERS: PCP Family Medicine Geriatric Medicine; Visit Provider Family Medicine Geriatric Medicine
DX: R68.83 Chills (without fever) (principal)
CPT/HCPCS: 87635; 87804; 87807; C9803; U0003

== ENCOUNTER → 2021-02-14 10:32 | Outpatient (CLI) | payer MEDICARE, OTHER, SELFPAY ==
--- NOTE | 2021-02-14 10:42 | RAD_ITS ---
STUDY: X-RAY - PELVIS AND RIGHT HIP REASON FOR EXAM: Male, 70 years old. Pelvic and perineal pain. TECHNIQUE: 3 views of the pelvis and hip. COMPARISON: 10/12/2012. FINDINGS: There is a non-specific bowel gas pattern. Normal visualized soft tissue structures. Osteopenia. Stable right total hip arthroplasty. Stable mild arthrosis of the left hip. RAD/HIP, UNI W/ Pelvis 2-3 Views IMPRESSION: Osteopenia with stable right total hip arthroplasty. Mild arthrosis of the left hip unchanged. Electronically Signed: Rafael Petty MD at 13:09 EDT , Service support ,
[2021-02-14 12:21] LABS: Absolute Lymphocyte Count 0.74 X10^3/uL (0.83-4.51); Absolute Neutrophil Count 2.2 X10^3/uL (2.0-7.7); Basophil# 0.01 X10^3/uL; Basophil% 0.3 % (0-1); Eosinophil# 0.04 X10^3/uL; Eosinophils% 1.1 % (0-5); Hematocrit 46.5 % (40-54); Hemoglobin 15.7 g/dL (13.0-16.5); Lymphocyte # 0.74 X10^3/ul (0.83-4.51); Lymphocyte % 20.1 % (19-41); Mean Corp Hgb Conc 33.8 g/dL (32-36); Mean Corpuscular Hgb 30.3 pg (27.0-32.0); Mean Corpuscular Volume 89.6 fL (80-94); Mean Platelet Vol. 11.6 fl (6.2-12.0); Monocyte# 0.65 X10^3/uL; Monocyte% 17.7 % (0-10); NRBC Flagged by Analyzer 0 % (0-5); Neutrophil # 2.23 X10^3/uL (2.7-7.7); Neutrophil % 60.5 % (47-70); Platelet Count 216 K/mm3 (150-450); RBC Distribution Width CV 12.4 % (11.6-14.6); RBC Distribution Width SD 40.8 fl (35.1-43.9); Red Blood Count 5.19 M/mm3 (4.6-6.2); White Blood Count 3.7 K/mm3 (4.4-11.0)
[2021-02-14 12:36] LABS: Vitamin D,25 Hydroxy 61.4 ng/mL
[2021-02-14 12:46] LABS: ALB/GLOB Ratio 0.9 RATIO (0.9-2.4); AST(SGOT) 19 U/L (15-37); Alanine Aminotransfer ALT/SGPT 29 U/L (16-61); Albumin, Serum 3.5 g/dL (3.2-5.0); Alkaline Phosphatase 81 U/L (45-117); Anion Gap 4 (5-15); BUN 19 mg/dL (7-18); BUN/Creat Ratio 15.2 RATIO (10-20); Calcium,Total 9.2 mg/dL (8.5-10.1); Chloride 103 mmol/L (98-107); Creatinine, Serum 1.25 mg/dL (0.70-1.30); EST Glomerular Filtration Rate 60 mL/min (>60); Est Glom Filt Rate - Afr Amer 73 mL/min (>60); Globulin 3.7 g/dL (2.2-4.2); Glucose 130 mg/dL (74-106); PSA,Total - Annual Screen < 0.01 ng/mL (0.00-4.00); Potassium 3.7 mmol/L (3.5-5.1); Protein, Total 7.2 g/dL (6.4-8.2); Sodium Level 137 mmol/L (136-145); Thyroid Stim Hormone (TSH) 2.24 uIU/mL (0.358-3.74)
== END ==
PROVIDERS: PCP Family Medicine Geriatric Medicine; Referring Provider Family Medicine Geriatric Medicine; Visit Provider Family Medicine Geriatric Medicine
DX: R10.2 Pelvic and perineal pain (principal); E55.9 Vitamin D deficiency, unspecified; I10 Essential (primary) hypertension; Z12.5 Encounter for screening for malignant neoplasm of prostate
CPT/HCPCS: 36415; 73502; 80053; 82306; 84153; 84443; 85025; G0103

== ENCOUNTER 2021-08-15 10:30 | Outpatient (CLI) | payer MEDICARE, SELFPAY ==
[2021-08-15 12:26] LABS: Absolute Neutrophil Count 1.8 X10^3/uL (2.0-7.7); Basophil# 0.01 X10^3/uL; Basophil% 0.3 % (0-1); Eosinophil# 0.03 X10^3/uL; Hematocrit 44.9 % (40-54); Hemoglobin 15.2 g/dL (13.0-16.5); Lymphocyte % 22.6 % (19-41); Mean Corp Hgb Conc 33.9 g/dL (32-36); Mean Corpuscular Volume 88.6 fL (80-94); Mean Platelet Vol. 11.4 fl (6.2-12.0); Monocyte% 19.4 % (0-10); NRBC Flagged by Analyzer 0 % (0-5); Neutrophil # 1.75 X10^3/uL (2.7-7.7); Neutrophil % 56.4 % (47-70); Platelet Count 223 K/mm3 (150-450); RBC Distribution Width CV 12.4 % (11.6-14.6); RBC Distribution Width SD 40.1 fl (35.1-43.9); Red Blood Count 5.07 M/mm3 (4.6-6.2); White Blood Count 3.1 K/mm3 (4.4-11.0)
[2021-08-15 12:42] LABS: Vitamin D,25 Hydroxy 53.7 ng/mL
[2021-08-15 12:50] LABS: ALB/GLOB Ratio 1.2 RATIO (0.9-2.4); AST(SGOT) 28 U/L (15-37); Alanine Aminotransfer ALT/SGPT 38 U/L (16-61); Albumin, Serum 3.8 g/dL (3.2-5.0); Alkaline Phosphatase 76 U/L (45-117); Anion Gap 6 (5-15); BUN 23 mg/dL (7-18); BUN/Creat Ratio 18.5 RATIO (10-20); Chloride 102 mmol/L (98-107); Creatinine, Serum 1.24 mg/dL (0.70-1.30); EST Glomerular Filtration Rate 61 mL/min (>60); Est Glom Filt Rate - Afr Amer 74 mL/min (>60); Globulin 3.2 g/dL (2.2-4.2); Glucose 124 mg/dL (74-106); Potassium 3.8 mmol/L (3.5-5.1); Sodium Level 138 mmol/L (136-145); Thyroid Stim Hormone (TSH) 2.08 uIU/mL (0.358-3.74)
== END 2021-08-15 23:59 | disposition home or self-care (01) ==
PROVIDERS: PCP Family Medicine Geriatric Medicine; Visit Provider Family Medicine Geriatric Medicine
DX: I10 Essential (primary) hypertension (principal); E55.9 Vitamin D deficiency, unspecified
CPT/HCPCS: 36415; 80053; 82306; 84443; 85025

== ENCOUNTER → 2021-09-17 | Outpatient (CLI) | payer MEDICARE, SELFPAY ==
--- NOTE | 2021-09-17 | LES_PTH ---
PATIENT: MONICA RICHARDSON [facility]: [facility] U#:[id number] AGE/SX: 71/M ROOM: RE09/17/[address]: Dr. Fortino Leach MD : 1950 BED: DIS: 09/17/2021 SPEC #: [id number] RECD: 09/17/21 14:49 STATUS: ANAND KEISHA #: [id number] VANDANA: 09/17/21 00:[address]: Fortino Leach DEPT: SURGICAL PATHOLOGY RECD BY: Kane Lambert ENTERED: 09/18/21 09:52 SP TYPE: Lesion OTHR DR: Dr. Anoop Love MD Tissues: Skin of eyelid, NOS Procedures: Surgery Specimen Level IV HEADER OPERATION: Lid lesion biopsy right medial canthus PRE-OP DIAGNOSIS: Growth of eyelid TISSUE SUBMITTED: Lid lesion biopsy right medial canthus MICROSCOPIC DIAGNOSIS Right medial canthus, lid lesion biopsy: Verrucous keratosis with mild atypia. Negative for malignancy. BOBBY:lazara 09/19/2021 MICROSCOPIC DESCRIPTION Slides are reviewed. GROSS DESCRIPTION Received in fixative is one container labeled with the patient's name and designated right medial canthus. The specimen consists of a piece of arnett-light brown skin measuring 0.3 x 0.1 x 0.1 cm. The entire specimen is submitted in one cassette. / BOBBY:lazara 09/18/2021 TC:5 CPT: 70117
== END | disposition home or self-care (01) ==
LOC: LABSPEC 15:12
PROVIDERS: PCP Family Medicine Geriatric Medicine; Visit Provider Ophthalmology
DX: L82.0 Inflamed seborrheic keratosis (principal)
CPT/HCPCS: 88305

== ENCOUNTER → 2022-01-24 | Outpatient (CLI) | payer MEDICARE, SELFPAY ==
--- NOTE | 2022-01-24 07:33 | MRI_ITS ---
STUDY: MRI LEFT FOREFOOT WITHOUT CONTRAST REASON FOR EXAM: Pain of the left first and second toes evaluate for plantar plate tear. TECHNIQUE: Standardized fat and water weighted pulse sequences were obtained in all 3 orthogonal planes. COMPARISON: None. FINDINGS: There is arthrosis of the metatarsophalangeal joint of the hallux with small marginal osteophytes, chondral loss and mild subchondral cystic change/bone edema (inversion recovery sagittal images 22-26). There is mild arthrosis of the sesamoids-first metatarsal articulations with mild chondral thinning (T2 short axis series 6 image 15). Normal interphalangeal joint of the hallux. Normal proximal and distal phalanges of the great toe. Normal medial and lateral heads of the flexor hallucis brevis tendons. Normal flexor and extensor hallucis longus tendons. There is a tear of the lateral aspect of the plantar plate of the second metatarsophalangeal joint (inversion recovery sagittal images 16, 17; inversion recovery short axis series 5 image 20). There is mild bone edema of the plantar aspect of the head of the second metatarsal (inversion recovery sagittal image 17). There is bone edema of the base and diaphysis of the second proximal phalanx (inversion recovery sagittal image 16). There is mild hammertoe deformity of the second toe. Normal third through fifth metatarsophalangeal (MTP) joints. Normal interphalangeal joints of the third through fifth toes. Normal proximal, middle and distal phalanges of the third through fifth toes. There is an intermetatarsal neuroma of the second webspace (T1 short axis series 3 image 21) measuring 0.5 cm in transverse dimension. Normal flexor and extensor tendons of the second through fifth toes. There is no metatarsal stress fracture. Normal intrinsic muscles of the forefoot. There is edema in the dorsal subcutis adipose space. MRI/Lower Ext/No Jt/w/o IMPRESSION: Tear of the plantar plate of the second metatarsophalangeal joint. Bone edema of the second proximal phalanx and second metatarsal head, a stress phenomenon. Arthrosis of the first metatarsophalangeal joint and mild arthrosis of the sesamoids-first metatarsal articulations. Intermetatarsal neuroma of the second webspace. Electronically Signed: Bryn Bateman MD at 9:10 EDT ,
== END | disposition home or self-care (01) ==
LOC: MRI 07:18
PROVIDERS: PCP Family Medicine Geriatric Medicine; Referring Provider Podiatrist; Visit Provider Podiatrist
DX: M19.072 Primary osteoarthritis, left ankle and foot (principal); M20.12 Hallux valgus (acquired), left foot; S93.525A Sprain of metatarsophalangeal joint of left lesser toe(s), initial encounter
CPT/HCPCS: 73718

== ENCOUNTER 2022-02-05 11:56 | Outpatient (RCR) | payer MEDICARE, SELFPAY ==
--- NOTE | 2022-02-05 12:55 | HP.PTEVAL ---
Patient's Visit Information MONICA RICHARDSON is a 71 year old M referred to Physical Therapy by Dr. Christiano Garzon DPM with a diagnosis of Pre surgical left hammer toe. Date of Evaluation: 02/05/22 Physical Therapist: Juany Guerrero DPT - Visit Plan Plan: 1x visit for crutch and gait training - Subjective Plans to have left hammer toe surgery- surgery is not scheduled yet but soon. He is here today for pre-op crutch and stair training prior to surgery. Lives with - in a 2 story home- lower level has entertainment- 2nd level has kitchen-3rd level has bedroom/bathroom. Each have a single hand rail. To enter also has 3 steps with handrail. Work: retired. Has had both knees and right hip replaced. Will have pins and will be NWB for 4-6 weeks. Have a chair seat for the shower. chair for commode and FWW. - Objective Posture: fair throughout. Gait: slightly antalgic with decreased stance on the left LE- poor heel/toe. SLS: weight shift. HR/TR: able. ROM: WFL. Strength: WFL - Goals Goal 1:: Patient will be I with NWB ambulation Goal 2:: Patient will be I with NWB stair negotiation - Rehabilitation Potential Physical Therapy Diagnosis: Patient presents with hypomobility- he has decreased LE and core strength/stabilization, flex and muscular endurance leading to abnormal gait Rehabilitation Potential: Excellent - Anticipated Interventions Thank you for the opportunity to evaluate your patient. For Medicare and Medicare HMO plans, please review the plan of care and approve it. It will need to be FAXED BACK to us at [phone] for Medicare purposes. For Medicare only, by signing this I certify the plan of care. Please let me know if there are questions or concerns regarding this plan of care. Physician Signature: Date:
--- NOTE | 2022-04-25 08:04 | HP.PT.NRP ---
MONICA Hughes DYLAN was seen in my office for initial evaluation on 02/05/22. The following Plan of Care was established for this patient: This patient was last seen in our office . Pertinent comments regarding their Physical therapy will appear below: Patient to have surgery- crutch training appropriate -Patient has not attended physical therapy in over 30 days- at this time d/c is appropriate and return to the MD for further evaluation as needed At this point I will be discontinuing this patient from physical therapy. I would be happy to see this patient again in the future if found appropriate by the physician. Thank you! RAMU RomanT
== END 2022-02-05 19:00 | disposition home or self-care (01) ==
LOC: PT 11:56
PROVIDERS: PCP Family Medicine Geriatric Medicine; Referring Provider Podiatrist; Visit Provider Podiatrist
DX: M20.12 Hallux valgus (acquired), left foot (principal); M19.072 Primary osteoarthritis, left ankle and foot; M20.42 Other hammer toe(s) (acquired), left foot
CPT/HCPCS: 97162

== ENCOUNTER → 2022-02-18 | Outpatient (CLI) | payer MEDICARE, SELFPAY ==
[2022-02-18 10:08] LABS: Absolute Lymphocyte Count 0.89 X10^3/uL (0.83-4.51); Absolute Neutrophil Count 2.7 X10^3/uL (2.0-7.7); Basophil# 0.01 X10^3/uL; Basophil% 0.2 % (0-1); Eosinophil# 0.03 X10^3/uL; Eosinophils% 0.7 % (0-5); Hematocrit 46.1 % (40-54); Hemoglobin 15.8 g/dL (13.0-16.5); Lymphocyte # 0.89 X10^3/ul (0.83-4.51); Lymphocyte % 21.1 % (19-41); Mean Corp Hgb Conc 34.3 g/dL (32-36); Mean Corpuscular Hgb 30.5 pg (27.0-32.0); Mean Platelet Vol. 10.9 fl (6.2-12.0); Monocyte# 0.61 X10^3/uL; Monocyte% 14.5 % (0-10); NRBC Flagged by Analyzer 0 % (0-5); Neutrophil # 2.66 X10^3/uL (2.7-7.7); Platelet Count 213 K/mm3 (150-450); RBC Distribution Width CV 12.2 % (11.6-14.6); RBC Distribution Width SD 40.1 fl (35.1-43.9); Red Blood Count 5.18 M/mm3 (4.6-6.2); White Blood Count 4.2 K/mm3 (4.4-11.0)
[2022-02-18 10:35] LABS: Vitamin D,25 Hydroxy 41.2 ng/mL
[2022-02-18 10:41] LABS: AST(SGOT) 21 U/L (15-37); Alanine Aminotransfer ALT/SGPT 28 U/L (16-61); Albumin, Serum 3.5 g/dL (3.2-5.0); Alkaline Phosphatase 86 U/L (45-117); Anion Gap 8 (5-15); BUN 18 mg/dL (7-18); Calcium,Total 8.7 mg/dL (8.5-10.1); Chloride 105 mmol/L (98-107); EST Glomerular Filtration Rate 63 mL/min (>60); Est Glom Filt Rate - Afr Amer 76 mL/min (>60); Globulin 3.4 g/dL (2.2-4.2); Glucose 129 mg/dL (74-106); Potassium 3.4 mmol/L (3.5-5.1); Protein, Total 6.9 g/dL (6.4-8.2); Sodium Level 140 mmol/L (136-145); Thyroid Stim Hormone (TSH) 2.51 uIU/mL (0.358-3.74)
[2022-02-18 11:47] LABS: PSA,Total - Annual Screen < 0.01 ng/mL (0.00-4.00)
== END | disposition home or self-care (01) ==
LOC: POLAB3 09:08
PROVIDERS: PCP Family Medicine Geriatric Medicine; Visit Provider Family Medicine Geriatric Medicine
DX: E55.9 Vitamin D deficiency, unspecified (principal); I10 Essential (primary) hypertension; Z12.5 Encounter for screening for malignant neoplasm of prostate
CPT/HCPCS: 36415; 80053; 82306; 84153; 84443; 85025; G0103

== ENCOUNTER 2022-03-15 08:28 | Day surgery (SDC) | payer MEDICARE, SELFPAY ==
[2022-03-15] MEDS: Lactated Ringers 1,000 ML 15 ML IV (08:40)
[2022-03-15 08:57] VITALS: BP 147/83; PULSE 69; RESP 17; TEMP 37.1; O2SAT 96; BMI 33.5
[2022-03-15] MEDS: Cefazolin 2 GM in 0.9% Normal Saline 100 ML IV (09:55)
--- NOTE | 2022-03-15 09:55 | PCM.DC ---
Discharge Instructions Diet Discharge Diet: Light diet - advance as tolerated Activity Discharge Activity: May Not Drive Weight Bearing Status: No weight bearing (No weightbearing on left foot) Keep extremity elevated above heart level: Left Leg (Keep left foot elevated at or above chest level for at least 50 minutes of every hour.) Dressing / Incision Call your doctor if your incision/area has: Sudden Increased Bleeding and Foul Smelling Discharge Call your doctor if you observe: Fever of 101 or Higher, Shortness of breath, Chest pain, Calf discomfort and Uncontrolled pain Change Dressing in: do not change dressing Remove Dressing in: do not remove dressing Cleanse incision/area with: Keep Dressing Clean & Dry Follow Up Care Please Follow Up With: Christiano Garzon DPM When: [facility], follow up sooner if needed. [phone] - office number [phone] - Dr. Garzon cell/pager Test Results: Test results from this visit will be discussed in further detail at your follow-up appointment, if applicable. Discharge Plan Admission Attending Provider: Christiano Garzon Primary Care Provider: Anoop Love Chi Discharge Orders/Prescriptions Prescriptions: New hydrocodone-acetaminophen 5-325 mg tablet 1 - 2 tab PO Q6H PRN (Reason: pain) 4 Days Qty: 30 0RF No Action simvastatin 20 mg tablet 20 mg PO QHS 90 Days Qty: 90 hydrochlorothiazide 25 mg tablet 25 mg PO DAILY 90 Days Qty: 90 potassium chloride 10 MEQ tablet 10 meq PO DAILY zinc 22 mg Tablet 22 mg PO DAILY cholecalciferol (vitamin D3) [Vitamin D3] 50 mcg (2,000 unit) Tablet 50 mcg PO DAILY Probiotic 100 billion cell Capsule 1 cap PO DAILY Liposomal Vitamin C 1,600 mg PO/SL QODAY omeprazole magnesium [Prilosec OTC] 20 mg Tablet,Delayed Release (Dr/Ec) 20 mg PO DAILY PRN PRN (Reason: Heartburn) Referrals / Follow Up: Anoop Love Chi, MD [Primary Care Provider] - Disposition Disposition (needs filled in before D/C Order can be placed): Home, Self Care
--- NOTE | 2022-03-15 10:00 | RAD_ITS ---
STUDY: X-RAY - LEFT FOOT CLINICAL: Male, 71 years old. Second digit surgery TECHNIQUE: 19 intraoperative view(s) of the foot. COMPARISON: None. FINDINGS: 19 Limited intraoperative views were performed as the patient has undergone hardware placement of a threaded screw into the second metatarsal head and fusion of the PIP and DIP joints. No intraoperative complications during hardware placement. RAD/Foot min 3 Views IMPRESSION: No intraoperative complications noted during Limited intraoperative views of placement of surgical hardware into the second metatarsal head and fusion of the second PIP and DIP joints Electronically Signed: Rui Walsh MD at 13:27 EDT ,
--- NOTE | 2022-03-15 10:00 | BON_PTH ---
PATIENT: MONICA RICHARDSON LOC: [facility] [place] U#:[id number] AGE/SX: 71/M ROOM: RE03/15/[address]: Dr. Christiano Garzon DPM : 1950 BED: DIS: 03/15/2022 SPEC #: [id number] RECD: 03/15/22 13:07 STATUS: ANAND REQ #: [id number] VANDANA: 03/15/22 10:[address]: Christiano Garzon DEPT: SURGICAL PATHOLOGY RECD BY: Opal Reina ENTERED: 03/18/22 09:01 SP TYPE: Bone OTHR DR: Dr. Anoop Love MD Tissues: A - Toe, NOS B - Toe, NOS C - Toe, NOS Procedures: Decalcification bone/plaque Surgery Specimen Level III HEADER OPERATION: First metatarsophalangeal joint chilectomy, arthroplasty PRE-OP DIAGNOSIS: Osteoarthritis first metatarsophalangeal joint, second digit hammertoe, torn second metatarsophalangeal joint plantar plate with flexor tendon with deformed second metatarsal TISSUE SUBMITTED: A - Left foot first metatarsal bone, B - Second toe left foot bone, C - Left foot neuroma second intermetatarsal space MICROSCOPIC DIAGNOSIS A. Left foot first metatarsal bone: Fragments of bone and cartilage with focal reparative and reactive change. B. Second toe left foot bone, excision: Focal reactive and reparative change. C. Soft tissue left foot second intermetatarsal space, excision: Consistent with neuroma. AM:lazara 03/21/2022 MICROSCOPIC DESCRIPTION Slides are reviewed. GROSS DESCRIPTION A - Received in fixative is one container labeled with the patient's name and designated first metatarsal left foot bone. The specimen consists of two irregular fragments of discoid, arnett-yellow bone ranging in size from 2 to 3 cm. Food And Nutrition Professor sections are submitted in one cassette after decalcification. B - Received in fixative is one container labeled with the patient's name and designated second toe left foot. The specimen consists of multiple irregular fragments of arnett-yellow bone that in aggregate measure 2.2 x 1.2 x 0.2 cm. The specimen is totally submitted in one cassette after decalcification. C - Received in fixative is one container labeled with the patient's name and designated left foot neuroma second intermetatarsal area. The specimen consists of an irregular fragment of white-yellow soft tissue measuring 3.2 x 2 x 0.7 cm. The specimen is bisected and totally submitted in one cassette. / AM:lazara 03/18/2022 TC:5 CPT: 11056 x3, 49060 x2
[2022-03-15] MEDS: Bupivacaine 0.25% 30 ML Vial (10:25)
--- NOTE | 2022-03-15 12:50 | RAD_ITS ---
STUDY: X-RAY - LEFT FOOT CLINICAL: Male, 71 years old. Postop from second toe surgery TECHNIQUE: 3 view(s) of the foot. COMPARISON: None. FINDINGS: Normal talus and tarsal bones. Calcaneal spurs Patient has undergone placement of surgical hardware into the second metatarsal head and surgical fusion of the second digit PIP and DIP joints. Hardware is free of complication. Normal postoperative soft tissue swelling and subcutaneous emphysema. Normal visualized subtalar, talonavicular, calcaneocuboid, tarsal and tarsometatarsal articulations. Normal metatarsi. There is degenerative arthrosis of the metatarsophalangeal joint of the hallux with subchondral changes in the distal first metatarsal head and proximal phalanx of the great toe. . Normal tibial and fibular sesamoid bones. Normal interphalangeal joint of the great toe. Normal phalanges of the great toe. Normal second through fifth metatarsophalangeal joints. Normal interphalangeal joints and phalanges of the lesser toes. The soft tissue structures are unremarkable. RAD/Foot min 3 Views IMPRESSION: Patient is postop from cervical hardware placement into the second metatarsal head and fusion of the second PIP and DIP joints. Hardware is free of postoperative complication. Normal postoperative soft tissue swelling and subcutaneous emphysema Severe first MTP joint arthrosis with subchondral changes in the distal first metatarsal and proximal first phalanx Calcaneal spurs Electronically Signed: Rui Walsh MD at 13:29 EDT ,
--- NOTE | 2022-03-15 12:52 | PCM.OPRPT ---
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, left 2nd intermetatarsal neuroma, left Post-Operative Diagnosis: Same Surgery/Procedure Performed:: Left 1st metatarsal phalangeal joint cheilectomy arthroplasty bunionectomy Arthrodesis 2nd toe, left 2nd metatarsal osteotomy, left Repair of 2nd metatarsal phalangeal joint plantar plate, left Excision of left 2nd intermetatarsal neuroma, left Surgeon: Christiano Garzon Specimen's removed: Bone from left 1st metatarsal phalangeal joint sent to pathology Bone from left 2nd toe sent to pathology Excised 2nd intermetatarsal space neuroma sent to pathology Estimated Blood Loss (mL): 30mL Description of Procedure: Scenario Writer: Dr. Satya Hayes Indications: This is a 71 year old gentleman with chronic left foot pain despite extensive nonsurgical treatment. He has difficulty with shoes. Since symptoms persist despite nonsurgical care, we discussed surgical options. Reviewed the procedures, possible benefits vs risks, goals, expectations, and estimated healing time. He expressed understanding and agreement. No guarantees were given nor implied. No warranties were given. Patient freely signed the consent forms and elected to proceed forward with the procedures. Operative procedure: He was brought back into the operating room and was placed on the operating room table in the supine position. A timeout was performed and the patient was properly identified and the surgical plan was confirmed. The patient did receive 2 g of IV Ancef for antibiotic prophylaxis. The patient received general anesthesia per the anesthesia team. A well padded pneumatic tourniquet was applied around the left ankle. A total of 20mL of 0.5% Bupivacaine plain was given as a local nerve block around the left foot 1st and 2nd rays and 2nd intermetatarsal space after the overlying skin was cleansed with 70% Isopropyl alcohol. The left foot was scrubbed, prepped and draped in the usual aseptic fashion. Further attention was directed to the left foot. There was noted to be positive dorsal drawer to the 2nd metatarsal phalangeal joint. The 2nd metatarsal is long, and 2nd toe was medially deviated. The 2nd toe was a hammer toe. The 1st toe was laterally deviated and there was significant limited range of motion to the 1st metatarsal phalangeal joint with significant arthritis present. The left foot was exsanguinated using an Esmarch bandage and the left ankle pneumatic tourniquet was inflated to 250mmHg. Left 1st metatarsal phalangeal joint (MTPJ) cheilectomy arthroplasty bunionectomy: Attention was directed to the 1st MTPJ. There as noted to be significant limited range of motion present (there was no dorisflexion at the 1st MTPJ), with grinding and significant dorsal jamming consistent with significant hallux rigidus and osteoarthritis. There was some lateral deviation of the 1st toe into the 2nd toe. There was significant medial and dorsal eminence at the 1st metatarsal head. There were osteophytes around the joint. A linear longitudinal skin incision was made overlying the dorsal medial 1st MTPJ, medial to the Extensor Hallucis Longus tendon using a 15 scalpel blade. Careful dissection was completed down through the subcutaneous tissue layer, down to the 1st MTPJ capsule, which was incised with a 15 scalpel blade. The 1st MTPJ capsule was very tight with adhesions, it was partially reflected exposing the dorsal, lateral, and medial aspect of the 1st metatarsal head and base of the hallux proximal phalanx. There was a significant dorsal and medial eminence present to the 1st metatarsal head, with bone fragment to the dorsal aspect of the 1st MTPJ. The cartilage to the 1st metatarsal head and base of the hallux proximal phalax was severely worn away and degenerative. There were significant adhesions of the sesamoid apparatus. The adhesions of the 1st MTPJ capsule and sesamoid apparatus were carefully freed up using a McGlamry elevator. Using a powered sagittal saw the dorsal and medial eminences, including the dorsal one third of the 1st metatarsal head was resected. The bone fragment of the dorsal 1st MTPJ was resected, the osteophytes of the dorsal aspect of the base of the hallux proximal phalanx were resected with a bone cutting rongeur. These were all were sent to pathology for further evaluation. Proper resection was confirmed visually as well as using intra operative fluoroscopy. At this time the 1st MTPJ was put through range of motion and it was gliding normally and smoothly, with no impingement, popping, grinding, or crepitus present, there was smooth 90 degrees of 1st metatarsal phalangeal joint dorsiflexion and normal plantarflexion range of motion, confirmed with fluoroscopy. Again there was no popping or catching present with range of motion both with dorsiflexion and plantarflexion. The hallux was in good position. The site was flushed out with copious amounts of normal saline solution. The joint capsule was reapproximated in neutral position using 3-0 Vicryl, the subcutaneous tissue layer was reapproximated using 3-0 Vicryl, the skin was reapproximated using 3-0 Nylon. Left 2nd metatarsal osteotomy: A curvilinear skin incision was made overlying the dorsal 2nd metatarsal phalangeal joint using a 15 scalpel blade. Careful dissection was completed down through the subcutaneous tissue layer. The extensor tendons were identified and were retracted safely out of the way. The dorsal 2nd metatarsal phalangeal joint capsule was incised with a 15 blade. The metatarsal head was visualized. There was noted to be significant adhesions to the plantar aspect of the joint at the level of the plantar plate, with lateral plantar plate tear. The 2nd metatarsal was deformed being long, but otherwise the joint did appear to be healthy and viable. A brittney osteotomy was completed through the distal 2nd metatarsal using a powered sagittal saw, being sure to make the osteotomy parallel to the weightbearing surface. The 2nd metatarsal head was gently placed in a more proximal position and the osteotomy site was fixated using one 2.5mm cannulated headless Arthrex screw using rigid open reduction internal fixation technique. There was excellent stability and fixation to the osteotomy site. Intraoperative fluoroscopy was used to confirmed proper positioning and fixation. The site was flushed out with copious amounts of normal saline solution. The joint capsule was reapproximated using 3-0 Vicryl. The subcutaneous tissue was reapproximated using 3-0 Vicryl and the skin was reapproximated using 3-0 Nylon. Left 2nd metatarsal phalangeal joint plantar plate repair: A linear skin incision was made overlying the plantar 2nd metatarsal phalangeal joint using a 15 scalpel blade. Careful dissection was completed down through the subcutaneous tissue layer. The flexor tendon sheath was identified, there were some adhesions noted. The sheath was incised carefully being sure not to incision the tendons, and the adhesions of the flexor tendons were released (tenolysis). Otherwise the flexor tendons appeared healthy and viable, and they were retracted safely out of the way. The plantar plate was visualized and there was noted to be thickening, there was noted to be a tear of the lateral plantar plate. There was instability of the plantar plate when stressing it. The plantar plate edges were debrided and the plantar plate was repaired using 2-0 PFiberWire via a pants over vest suturing technique. This was repair holding the 2nd toe in a slight plantarflexed position. At this time there was noted to be negative dorsal drawer test, and now there was excellent stability present to the plantar plate. Alignment of the joint was anatomic, and position of the 2nd toe was rectus in all planes when loading the foot. The site was flushed out with copious amounts of normal saline solution. The joint capsule was reapproximated using 3-0 Vicryl. The subcutaneous tissue was reapproximated using 3-0 Vicryl and the skin was reapproximated using 3-0 Nylon. Left 2nd toe arthrodesis: Attention was directed to the toe. A dorsal linear longitudinal incision was made over the proximal interphalangeal joint (PIPJ) of the toe. An incision was made longitudinally to the extensor digitorum longus tendon and split down the middle, leaving the ends intact, this was done with a 15 blade. The dorsal PIPJ joint capsule was incised with a 15 blade. The cartilage from the head of the proximal phalanx was resected using a powered sagittal saw, and cartilage from the base of the middle phalanx was resected using a sagittal saw. The site was flushed out with copious amounts of normal saline solution. An Arthrex FT compression screw was placed through the phalanges of the toe holding the toe in rectus position. This was confirmed with intra operative fluoroscopy. The site was again flushed out with copious amounts of normal saline solution. The skin was reapproximated using 3-0 Nylon. Left 2nd intermetatarsal space neuroma excision: Attention was directed to the 2nd intermetatarsal space, where a longitudinal incision was made using a 15 blade on the plantar aspect. Careful dissection was completed down to the neuroma. A large plantar neuroma was identified localized to the site, which was yellow and degenerative. 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 This was carefully dissected out, removing the proximal nerve and also the distal branches to the 2nd and 3rd toes at the base of the toes. This was passed from the surgical site and was sent to pathology for further evaluation. The proximal nerve stump was healthy, viable and was carefully buried into the intrinsic musculature of the foot. All other tissue to the site appeared healthy and viable with no other abnormality present to this site. The site was flushed out with copious amounts of normal saline solution. The subcutaneous tissue was reapproximated using 3-0 Vicryl. The skin was reapproximated using 3-0 Nylon The pneumatic tourniquet was deflated (total tourniquet time was 111 minutes), and there was immediate return of warmth and perfusion to the foot, including to all 5 toes. CFT < 2 seconds to all toes. A dressing was applied which consisted of Betadine soaked adaptic, 4x4 gauze, Kerlix and garcía bandage. Of note all vital structures, including all vital neurovascular structures were properly identified, they were protected and retracted as necessary throughout the above procedures. The patient tolerated the above procedure well and the anesthesia well with no complications. The patient was transported from the operating room to the recovery room with vital signs stable and in good condition. Post operative orders were placed, post operative instructions were reviewed with the patient several times pre operatively (today and pre op visit in office) - no weightbearing left foot, keep left foot elevated for at least 50 minutes of every hour, keep dressing clean, dry and intact, follow up with me within 1 week in office - sooner if needed. This was typed out and these written instructions were also reviewed with patient and given to patient to take home. [place]oughton 5/325mg PO q 6 hours as well as Ibuprofen 400mg PO q 6 hours was prescribed to help with post op pain control. This was discussed with patient as well. OARRS was checked prior to prescribing. A surgical shoe was also fitted and dispensed for him for left foot to help keep the foot protected. His was present when reviewing post op care. Grafts/Implants Used: 2 x 2.5mm FT Arthrex screws Complications None
[2022-03-15 12:56] VITALS: BP 147/83; BP 149/87; PULSE 81; RESP 18; TEMP 37.2; O2SAT 94
[2022-03-15 13:00] VITALS: BP 137/87; BP 147/83; PULSE 82; RESP 18; O2SAT 94
[2022-03-15 13:15] VITALS: BP 131/77; BP 147/83; PULSE 80; RESP 16; O2SAT 94
[2022-03-15 13:31] VITALS: BP 125/65; BP 147/83; PULSE 75; RESP 16; TEMP 36.7; O2SAT 96
[2022-03-15] MEDS: HYDROcodone Bitartrate/Apap 5/325 Tablet PO (14:00)
[2022-03-15 14:36] VITALS: BP 124/81; BP 147/83; PULSE 86; RESP 16; TEMP 37; O2SAT 92
== END 2022-03-15 14:55 | disposition home or self-care (01) ==
LOC: SDC 08:29 → AC 08:30
PROVIDERS: PCP Family Medicine Geriatric Medicine; Referring Provider Podiatrist; Visit Provider Podiatrist
PROC: (CPT 28289; principal; 2022-03-15 09:45)
DX: M20.42 Other hammer toe(s) (acquired), left foot (principal); G57.82 Other specified mononeuropathies of left lower limb; I10 Essential (primary) hypertension; E87.6 Hypokalemia; Z86.19 Personal history of other infectious and parasitic diseases
CPT/HCPCS: 28289; 28308; 28485; 01480; 73630; 76000; 88304; 88305; 88311; C1713; J7120; J2405

== ENCOUNTER → 2022-08-15 | Outpatient (CLI) | payer MEDICARE, SELFPAY ==
[2022-08-15 12:38] LABS: Absolute Lymphocyte Count 0.91 X10^3/uL (0.83-4.51); Basophil# 0.01 X10^3/uL; Basophil% 0.3 % (0-1); Eosinophil# 0.02 X10^3/uL; Eosinophils% 0.6 % (0-5); Hematocrit 46.4 % (40-54); Hemoglobin 15.6 g/dL (13.0-16.5); Lymphocyte # 0.91 X10^3/ul (0.83-4.51); Lymphocyte % 25.9 % (19-41); Mean Corp Hgb Conc 33.6 g/dL (32-36); Mean Corpuscular Volume 89.2 fL (80-94); Mean Platelet Vol. 11.4 fl (6.2-12.0); Monocyte# 0.61 X10^3/uL; Monocyte% 17.3 % (0-10); NRBC Flagged by Analyzer 0 % (0-5); Neutrophil # 1.96 X10^3/uL (2.7-7.7); Neutrophil % 55.6 % (47-70); Platelet Count 225 K/mm3 (150-450); RBC Distribution Width CV 12.4 % (11.6-14.6); RBC Distribution Width SD 40.1 fl (35.1-43.9); White Blood Count 3.5 K/mm3 (4.4-11.0)
[2022-08-15 13:03] LABS: Vitamin D,25 Hydroxy 43.9 ng/mL
[2022-08-15 13:56] LABS: ALB/GLOB Ratio 1.1 RATIO (0.9-2.4); AST(SGOT) 22 U/L (15-37); Alanine Aminotransfer ALT/SGPT 37 U/L (16-61); Albumin, Serum 3.7 g/dL (3.2-5.0); Alkaline Phosphatase 90 U/L (45-117); Anion Gap 7 (5-15); BUN 24 mg/dL (7-18); BUN/Creat Ratio 17.4 RATIO (10-20); Chloride 103 mmol/L (98-107); Creatinine, Serum 1.38 mg/dL (0.70-1.30); EST Glomerular Filtration Rate 54 mL/min (>60); Est Glom Filt Rate - Afr Amer 65 mL/min (>60); Globulin 3.4 g/dL (2.2-4.2); Glucose 144 mg/dL (74-106); Protein, Total 7.1 g/dL (6.4-8.2); Sodium Level 138 mmol/L (136-145); Thyroid Stim Hormone (TSH) 2.59 uIU/mL (0.358-3.74)
== END | disposition home or self-care (01) ==
LOC: POLAB3 11:23
PROVIDERS: PCP Family Medicine Geriatric Medicine; Visit Provider Family Medicine Geriatric Medicine
DX: E55.9 Vitamin D deficiency, unspecified (principal); I10 Essential (primary) hypertension
CPT/HCPCS: 36415; 80053; 82306; 84443; 85025

== ENCOUNTER → 2023-03-24 | Outpatient (CLI) | payer MEDICARE, SELFPAY ==
[2023-03-24 10:54] LABS: Absolute Lymphocyte Count 0.93 X10^3/uL (0.83-4.51); Absolute Neutrophil Count 2.4 X10^3/uL (2.0-7.7); Basophil# 0.02 X10^3/uL; Basophil% 0.5 % (0-1); Eosinophil# 0.04 X10^3/uL; Hematocrit 44.5 % (40-54); Hemoglobin 15.1 g/dL (13.0-16.5); Lymphocyte # 0.93 X10^3/ul (0.83-4.51); Lymphocyte % 22.2 % (19-41); Mean Corp Hgb Conc 33.9 g/dL (32-36); Mean Corpuscular Hgb 30.2 pg (27.0-32.0); Mean Platelet Vol. 11.1 fl (6.2-12.0); Monocyte# 0.76 X10^3/uL; Monocyte% 18.2 % (0-10); NRBC Flagged by Analyzer 0 % (0-5); Neutrophil % 57.4 % (47-70); Platelet Count 233 K/mm3 (150-450); RBC Distribution Width CV 12.4 % (11.6-14.6); RBC Distribution Width SD 40.6 fl (35.1-43.9); White Blood Count 4.2 K/mm3 (4.4-11.0)
[2023-03-24 11:18] LABS: AST(SGOT) 22 U/L (15-37); Alanine Aminotransfer ALT/SGPT 35 U/L (16-61); Albumin, Serum 3.5 g/dL (3.2-5.0); Alkaline Phosphatase 79 U/L (45-117); Anion Gap 4 (5-15); BUN 22 mg/dL (7-18); BUN/Creat Ratio 16.3 RATIO (10-20); Calcium,Total 8.8 mg/dL (8.5-10.1); Chloride 104 mmol/L (98-107); Creatinine, Serum 1.35 mg/dL (0.70-1.30); EST Glomerular Filtration Rate 55 mL/min (>60); Est Glom Filt Rate - Afr Amer 67 mL/min (>60); Globulin 3.6 g/dL (2.2-4.2); Glucose 132 mg/dL (74-106); Potassium 3.6 mmol/L (3.5-5.1); Protein, Total 7.1 g/dL (6.4-8.2); Sodium Level 137 mmol/L (136-145); Thyroid Stim Hormone (TSH) 2.37 uIU/mL (0.358-3.74)
[2023-03-24 12:16] LABS: Vitamin D,25 Hydroxy 46.1 ng/mL
[2023-03-24 15:10] LABS: PSA,Total - Annual Screen < 0.01 ng/mL (0.00-4.00)
== END | disposition home or self-care (01) ==
LOC: POLAB3 10:04
PROVIDERS: PCP Family Medicine Geriatric Medicine; Visit Provider Family Medicine Geriatric Medicine
DX: I10 Essential (primary) hypertension (principal); E55.9 Vitamin D deficiency, unspecified; Z12.5 Encounter for screening for malignant neoplasm of prostate
CPT/HCPCS: 36415; 80053; 82306; 84153; 84443; 85025; G0103

== ENCOUNTER 2023-05-09 08:08 | Day surgery (SDC) | payer MEDICARE, SELFPAY ==
[2023-05-09] VITALS (15 sets, daily range): BP systolic 69–140; BP diastolic 55–74; PULSE 65–86; RESP 15–16; TEMP 36–36.6; O2SAT 16–100; BMI 34.0
[2023-05-09] MEDS: Lactated Ringers 1,000 ML 15 ML IV ×2 (08:26→10:07)
--- NOTE | 2023-05-09 09:08 | HP.PCM_ITS ---
HPI - General General Date of Admission: 02/08/20 Date of Service: 05/09/23 Chief Complaint: Screening for intestinal cancer HPI Narrative CLAYTON RICHARDSON, is a 72 M who presents who presents via open access today for screening colonoscopy. Previous exam was in 2010. He is not sure whether he had numbness back then or polyps. He otherwise enjoys stable health. No bright red blood per rectum or melena. It is of note that his mother had colon cancer but she was age 89. [facility] Medical History (Updated 05/08/23 @ 11:40 by Marie Huddleston) Arthritis Contact with or suspected exposure to other viral communicable disease HBP (high blood pressure) Heartburn High cholesterol History of Clostridium difficile infection Hx of colonic polyps Hypertension Non-smoker Prostate disease Wears glasses Wears partial dentures Home Medications hydrochlorothiazide 25 mg tablet 25 mg PO DAILY 90 days #90 tabs 09/28/18 [History Last Taken Unknown] simvastatin 20 mg tablet 20 mg PO QHS 90 days #90 tabs 09/28/18 [History Last Taken Unknown] Lactobacillus 40-Bifidobact 3-S.thermophilus 100 billion cell capsule (Probiotic) 1 cap PO DAILY 03/08/22 [History Last Taken Unknown] Liposomal Vitamin C 1,600 mg PO/SL QODAY 03/08/22 [History Last Taken Unknown] cholecalciferol (vitamin D3) 50 mcg (2,000 unit) tablet (Vitamin D3) 50 mcg PO DAILY 03/08/22 [History Last Taken Unknown] omeprazole magnesium 20 mg tablet,delayed release (Prilosec OTC) 20 mg PO DAILY PRN PRN Heartburn 03/08/22 [History Last Taken Unknown] zinc 22 mg tablet 22 mg PO DAILY 03/08/22 [History Last Taken Unknown] multivitamin 1 tab PO DAILY 04/29/23 [History Last Taken Unknown] mv-mn-folic 200 mcg-vit K 15 mcg-lutein 5 mg-zeaxanthin 1 mg capsule (PreserVision AREDS 2 Plus Multivit) 1 cap PO BID 04/29/23 [History Last Taken Unknown] potassium chloride 20 mEq tablet,extended release 20 meq PO DAILY 04/29/23 [History Last Taken Unknown] Allergy/AdvReac Type Severity Reaction Status Date / Time chlorpromazine Allergy Severe Other Verified 05/09/23 08:22 [From Thorazine] Family History (Updated 04/29/23 @ 16:20 by Pamela Garland) Mother Dementia Colon cancer Father Prostate cancer Surgical History (Updated 05/08/23 @ 11:40 by Marie Huddleston) H/O radical prostatectomy History of cataract extraction History of colonoscopy History of eye surgery History of knee replacement History of right hip replacement Hx of foot surgery Social History (Updated 04/29/23 @ 16:12 by Pamela Garland) household members: spouse current occupational status: retired Smoking Status: Never smoker ROS Constitutional Constitutional: Reports systems reviewed and no addt'l complaints, except as documented Cardiovascular Cardiovascular: Denies chest pain Respiratory/Chest Respiratory/Chest: Denies shortness of breath at rest Gastrointestinal Gastrointestinal: Denies abdominal pain, change in bowel habits, hematochezia or melena Vital Signs Vital Signs Vital Signs: 05/09/23 08:23 05/09/23 08:23 Temperature 96.8 F L Temperature Source Temporal Pulse Rate 65 Respiratory Rate 16 Respiratory Pattern Normal Blood Pressure 140/74 H Blood Pressure Mean 96 Blood Pressure Source Monitor Blood Pressure Position Semi-Fowlers Blood Pressure Location Left Arm Pulse Ox 97 Oxygen Delivery Method Room Air Weight Weight: 251 lb 5.231 oz Body Mass Index (BMI) 34.0 Physical Exam Const alert, oriented x3 and no apparent distress General Appearance: cooperative and comfortable Eyes General Eye: normal appearance of both eyes Neck General: normal visual inspection Chest inspection of chest normal Resp Effort and Inspection: able to speak in complete sentences and symmetric chest movement Auscultation: clear to auscultation bilaterally Cardio regular rate and regular rhythm GI soft to palpation, non-tender and non-distended Extremity no calf tenderness Neuro oriented x3 Psych thought process normal Assessment & Plan Assessment/Plan (1) Encounter for screening for malignant neoplasm of colon: PLAN: 72-year-old gentleman presents via open access today for screening colonoscopy. He is aware of the technique, benefit, risk, alternatives. He has had an opportunity to ask and have questions answered. We will proceed as noted. Clayotn Wood M.D., F.A.C.S.
--- NOTE | 2023-05-09 09:43 | OP.COLON_ITS ---
Patient Name: Clayton Felipe Procedure Date: 05/09/2023 9:04 AM Date of : 1950 Age: 72 Procedure: Colonoscopy Indications: Screening for colorectal malignant neoplasm Providers: Clayton Wood MD Referring MD: Anoop Love MD Medicines: See the Anesthesia note for documentation of the administered medications Patient Profile: Last Colonoscopy: 2010. Complications: No immediate complications. Procedure: Pre-Anesthesia Assessment: - Prior to the procedure, a History and Physical was performed, and patient medications and allergies were reviewed. The patient's tolerance of previous anesthesia was also reviewed. The risks and benefits of the procedure and the sedation options and risks were discussed with the patient. All questions were answered, and informed consent was obtained. Prior Anticoagulants: The patient has taken no anticoagulant or antiplatelet agents. ASA Grade Assessment: II - A patient with mild systemic disease. After reviewing the risks and benefits, the patient was deemed in satisfactory condition to undergo the procedure. After I obtained informed consent, the scope was passed under direct vision. Throughout the procedure, the patient's blood pressure, pulse, and oxygen saturations were monitored continuously. The adult colonoscope was introduced through the anus and advanced to the terminal ileum, with identification of the appendiceal orifice and IC valve. The colonoscopy was performed with moderate difficulty due to a tortuous colon. The patient tolerated the procedure well. The quality of the bowel preparation was good. The ileocecal valve and the appendiceal orifice were photographed. Scope In: 9:14:13 AM Scope Withdrawal Time 0 hours 7 minutes 54 seconds Scope Out: 9:35:38 AM Total Procedure Duration Time 0 hours 21 minutes 25 seconds Findings: Hemorrhoids were found on perianal exam. Multiple diverticula were found in the sigmoid colon and descending colon. The left colon was significantly tortuous. Advancing the scope required changing the patient to a supine position and using manual pressure. The exam was otherwise without abnormality. Impression: - Hemorrhoids found on perianal exam. - Diverticulosis in the sigmoid colon and in the descending colon. - Tortuous colon. - The examination was otherwise normal. - No specimens collected. Recommendation: - Discharge patient to home. - Resume previous diet. - Continue present medications. - Repeat colonoscopy in 10 years for screening purposes. Procedure Code(s): --- Professional --- 26248, Colonoscopy, flexible; diagnostic, including collection of specimen(s) by brushing or washing, when performed (separate procedure) Diagnosis Code(s): --- Professional --- Z12.11, Encounter for screening for malignant neoplasm of colon K64.9, Unspecified hemorrhoids K57.30, Diverticulosis of large intestine without perforation or abscess without bleeding Q43.8, Other specified congenital malformations of intestine CPT copyright 2021 [employer]. All rights reserved. The codes documented in this report are preliminary and upon registered nurse review may be revised to meet current compliance requirements. Clayton Wood MD 05/09/2023 9:43:16 AM This report has been signed electronically. Number of Addenda: 0 Note Initiated On: 05/09/2023 9:04 AM
--- NOTE | 2023-05-09 09:44 | OP.CCLET_ITS ---
05/09/2023 Anoop Love MD [address] [place] [address] Re : Colonoscopy procedure for Clayton Felipe Dear Dr. Love This procedure was performed on Tuesday, May 09, 2023. My impressions and recommendations are as follows: Impressions : - Hemorrhoids found on perianal exam. - Diverticulosis in the sigmoid colon and in the descending colon. - Tortuous colon. - The examination was otherwise normal. - No specimens collected. Recommendations : - Discharge patient to home. - Resume previous diet. - Continue present medications. - Repeat colonoscopy in 10 years for screening purposes. My findings are described in the full procedure note, which is enclosed. If I can be of further assistance, please feel free to contact me at Doctor phone number(s): Work: . Sincerely, Clayton Wood MD 05/09/2023 9:43:16 AM This report has been signed electronically.
--- NOTE | 2023-05-09 09:59 | EKG12_ITS ---
Test Reason : POST OP Blood Pressure : / mmHG Vent. Rate : 066 BPM Atrial Rate : 066 BPM P-R Int : 216 ms QRS Dur : 086 ms QT Int : 410 ms P-R-T Axes : 039 052 028 degrees QTc Int : 429 ms Sinus rhythm with 1st degree A-V block Nonspecific T wave abnormality Abnormal ECG When compared with ECG of 18-NOV-2018 07:48, Nonspecific T wave abnormality now evident in Anterolateral leads Confirmed by DEZ RAY, KAILEY ([id number]), associate editor ELIZA TRIPP ([id number]) on 05/13/2023 11:24:49 AM Referred By: Anoop Love Confirmed By:KAILEY GARCES MD
[2023-05-09] MEDS: Ipratropium/Albuterol Sulfate 3 ML AMPUL.NEB INHALATION (10:43)
== END 2023-05-09 11:19 | disposition home or self-care (01) ==
LOC: EN 08:09 → AC 08:10
PROVIDERS: PCP Family Medicine Geriatric Medicine; Referring Provider Family Medicine Geriatric Medicine; Visit Provider Surgery
PROC: 0DJD8ZZ Inspection of Lower Intestinal Tract, Via Natural or Artificial Opening Endoscopic (ICD-10-PCS; CPT 45378; principal; 2023-05-09 09:10)
DX: Z12.11 Encounter for screening for malignant neoplasm of colon (principal); K57.30 Diverticulosis of large intestine without perforation or abscess without bleeding; I10 Essential (primary) hypertension; Z80.0 Family history of malignant neoplasm of digestive organs; K64.9 Unspecified hemorrhoids; E78.00 Pure hypercholesterolemia, unspecified; Z86.010 Personal history of colon polyps; Z79.899 Other long term (current) drug therapy; K21.9 Gastro-esophageal reflux disease without esophagitis; Z90.79 Acquired absence of other genital organ(s); Z98.49 Cataract extraction status, unspecified eye; Z96.659 Presence of unspecified artificial knee joint; Z96.641 Presence of right artificial hip joint; Q43.8 Other specified congenital malformations of intestine
CPT/HCPCS: G0121; 93005; 94640; J7120; J2405

== ENCOUNTER → 2023-09-22 | Outpatient (CLI) | payer OTHER, SELFPAY ==
[2023-09-22 10:29] LABS: Absolute Lymphocyte Count 0.84 X10^3/uL (0.83-4.51); Absolute Neutrophil Count 2.1 X10^3/uL (2.0-7.7); Basophil# 0.01 X10^3/uL; Basophil% 0.3 % (0-1); Eosinophil# 0.03 X10^3/uL; Eosinophils% 0.8 % (0-5); Hemoglobin 14.3 g/dL (13.0-16.5); Lymphocyte # 0.84 X10^3/ul (0.83-4.51); Lymphocyte % 22.4 % (19-41); Mean Corp Hgb Conc 33.3 g/dL (32-36); Mean Corpuscular Hgb 29.4 pg (27.0-32.0); Mean Corpuscular Volume 88.5 fL (80-94); Mean Platelet Vol. 11.6 fl (6.2-12.0); Monocyte# 0.73 X10^3/uL; Monocyte% 19.5 % (0-10); NRBC Flagged by Analyzer 0 % (0-5); Neutrophil # 2.11 X10^3/uL (2.7-7.7); Neutrophil % 56.2 % (47-70); Platelet Count 210 K/mm3 (150-450); RBC Distribution Width CV 12.4 % (11.6-14.6); RBC Distribution Width SD 40.1 fl (35.1-43.9); Red Blood Count 4.86 M/mm3 (4.6-6.2); White Blood Count 3.8 K/mm3 (4.4-11.0)
[2023-09-22 10:45] LABS: Vitamin D,25 Hydroxy 38.4 ng/mL
[2023-09-22 11:52] LABS: AST(SGOT) 18 U/L (15-37); Alanine Aminotransfer ALT/SGPT 27 U/L (16-61); Albumin, Serum 3.5 g/dL (3.2-5.0); Alkaline Phosphatase 84 U/L (45-117); Anion Gap 6 (5-15); BUN 20 mg/dL (7-18); BUN/Creat Ratio 15.6 RATIO (10-20); Calcium,Total 8.7 mg/dL (8.5-10.1); Chloride 104 mmol/L (98-107); Cholesterol 134 mg/dL (200); Creatinine, Serum 1.28 mg/dL (0.70-1.30); EST Glomerular Filtration Rate 58 mL/min (>60); Est Glom Filt Rate - Afr Amer 71 mL/min (>60); Globulin 3.4 g/dL (2.2-4.2); Glucose 135 mg/dL (74-106); High Density Lipoprotein 47 mg/dL; Potassium 3.6 mmol/L (3.5-5.1); Protein, Total 6.9 g/dL (6.4-8.2); Sodium Level 138 mmol/L (136-145); Triglycerides 170 mg/dL; Very Low Density Lipoprotein 34 mg/dL (5-40)
== END | disposition home or self-care (01) ==
LOC: POLAB3 09:49
PROVIDERS: PCP Family Medicine Geriatric Medicine; Visit Provider Family Medicine Geriatric Medicine
DX: I10 Essential (primary) hypertension (principal); E55.9 Vitamin D deficiency, unspecified; E78.5 Hyperlipidemia, unspecified
CPT/HCPCS: 36415; 80053; 80061; 82306; 84443; 85025

== ENCOUNTER → 2024-03-26 | Outpatient (CLI) | payer OTHER, SELFPAY ==
[2024-03-26 09:41] LABS: Absolute Lymphocyte Count 1.04 X10^3/uL (0.83-4.51); Absolute Neutrophil Count 2.5 X10^3/uL (2.0-7.7); Basophil# 0.02 X10^3/uL; Basophil% 0.5 % (0-1); Eosinophil# 0.04 X10^3/uL; Eosinophils% 0.9 % (0-5); Hematocrit 45.4 % (40-54); Hemoglobin 15.2 g/dL (13.0-16.5); Lymphocyte # 1.04 X10^3/ul (0.83-4.51); Lymphocyte % 23.7 % (19-41); Mean Corp Hgb Conc 33.5 g/dL (32-36); Mean Corpuscular Hgb 29.8 pg (27.0-32.0); Mean Platelet Vol. 10.6 fl (6.2-12.0); Monocyte# 0.71 X10^3/uL; Monocyte% 16.2 % (0-10); NRBC Flagged by Analyzer 0 % (0-5); Neutrophil # 2.54 X10^3/uL (2.7-7.7); Platelet Count 235 K/mm3 (150-450); RBC Distribution Width SD 39.5 fl (35.1-43.9); White Blood Count 4.4 K/mm3 (4.4-11.0)
[2024-03-26 14:01] LABS: ALB/GLOB Ratio 1.2 RATIO (0.9-2.4); AST(SGOT) 22 U/L (15-37); Alanine Aminotransfer ALT/SGPT 34 U/L (16-61); Albumin, Serum 3.7 g/dL (3.2-5.0); Alkaline Phosphatase 90 U/L (45-117); Anion Gap 7 (5-15); BUN 18 mg/dL (7-18); BUN/Creat Ratio 14.9 RATIO (10-20); Calcium,Total 8.8 mg/dL (8.5-10.1); Chloride 102 mmol/L (98-107); Cholesterol 144 mg/dL (200); Creatinine, Serum 1.21 mg/dL (0.70-1.30); EST Glomerular Filtration Rate 62 mL/min (>60); Est Glom Filt Rate - Afr Amer 75 mL/min (>60); Glucose 131 mg/dL (74-106); High Density Lipoprotein 40 mg/dL; PSA,Total - Annual Screen < 0.01 ng/mL (0.00-4.00); Potassium 3.9 mmol/L (3.5-5.1); Protein, Total 6.7 g/dL (6.4-8.2); Sodium Level 140 mmol/L (136-145); Triglycerides 321 mg/dL; Very Low Density Lipoprotein 64 mg/dL (5-40)
== END | disposition home or self-care (01) ==
LOC: POLAB3 09:05
PROVIDERS: PCP Family Medicine Geriatric Medicine; Referring Provider Family Medicine Geriatric Medicine; Visit Provider Family Medicine Geriatric Medicine
DX: I10 Essential (primary) hypertension (principal); E55.9 Vitamin D deficiency, unspecified; E78.5 Hyperlipidemia, unspecified
CPT/HCPCS: 36415; 80053; 80061; 82306; 84153; 84443; 85025; G0103

== ENCOUNTER → 2024-09-24 | Outpatient (CLI) | payer OTHER, SELFPAY ==
[2024-09-24 10:49] LABS: Absolute Lymphocyte Count 1.03 X10^3/uL (0.83-4.51); Absolute Neutrophil Count 2.7 X10^3/uL (2.0-7.7); Basophil# 0.02 X10^3/uL; Basophil% 0.4 % (0-1); Eosinophil# 0.04 X10^3/uL; Eosinophils% 0.9 % (0-5); Hematocrit 43.1 % (40-54); Hemoglobin 14.7 g/dL (13.0-16.5); Lymphocyte # 1.03 X10^3/ul (0.83-4.51); Mean Corp Hgb Conc 34.1 g/dL (32-36); Mean Corpuscular Hgb 30.1 pg (27.0-32.0); Mean Corpuscular Volume 88.3 fL (80-94); Mean Platelet Vol. 11.1 fl (6.2-12.0); Monocyte# 0.89 X10^3/uL; NRBC Flagged by Analyzer 0 % (0-5); Neutrophil # 2.68 X10^3/uL (2.7-7.7); Neutrophil % 57.3 % (47-70); Platelet Count 216 K/mm3 (150-450); RBC Distribution Width CV 12.2 % (11.6-14.6); RBC Distribution Width SD 39.4 fl (35.1-43.9); Red Blood Count 4.88 M/mm3 (4.6-6.2); White Blood Count 4.7 K/mm3 (4.4-11.0)
[2024-09-24 11:58] LABS: ALB/GLOB Ratio 1.4 RATIO (0.9-2.4); AST(SGOT) 26 U/L (<=37); Alanine Aminotransfer ALT/SGPT 29 U/L (<=46); Alkaline Phosphatase 90 U/L (40-129); Anion Gap 10 (5-15); BUN 22 mg/dL (4-19); BUN/Creat Ratio 18.2 RATIO (10-20); Calcium,Total 9.3 mg/dL (7.6-11.0); Chloride 100 mmol/L (98-108); Cholesterol 149 mg/dL (<=200); EST Glomerular Filtration Rate 63 (>60); Globulin 2.8 g/dL (2.2-4.2); Glucose 139 mg/dL (70-99); High Density Lipoprotein 36 mg/dL; Low Density Lipoprotein Calc. 51 mg/dL; Potassium 4.2 mmol/L (3.3-5.1); Protein, Total 6.9 g/dL (5.9-8.4); Sodium Level 137 mmol/L (133-145); Total Bilirubin 0.38 mg/dL (0.00-1.30); Triglycerides 311 mg/dL; Very Low Density Lipoprotein 62 mg/dL (5-40); Vitamin D,25 Hydroxy 31.9 ng/mL (30-100); cholesterol:hdl ratio screen 4.12
[2024-09-28 06:55] LABS: Hemoglobin A1c 7.3 % (<=5.6)
== END | disposition home or self-care (01) ==
LOC: LAB 10:26
PROVIDERS: PCP Family Medicine Geriatric Medicine; Referring Provider Family Medicine Geriatric Medicine; Visit Provider Family Medicine Geriatric Medicine
DX: R73.09 Other abnormal glucose (principal); I10 Essential (primary) hypertension; E55.9 Vitamin D deficiency, unspecified; E78.5 Hyperlipidemia, unspecified
CPT/HCPCS: 36415; 80053; 80061; 82306; 83036; 84443; 85025

== ENCOUNTER → 2024-10-20 | Outpatient (CLI) | payer MEDICARE, SELFPAY ==
--- NOTE | 2024-10-20 07:44 | RDU_ITS ---
Reason For Study Reason For Study: CKD Stage 3 Right Renal Artery Left Renal Artery Right renal artery ostium 117.1/29.0 Left renal artery ostium 66.1/18.2 RSV/EDV. PSV/EDV. Right renal artery proximal 97.6/27.6 Left renal artery proximal PSV/EDV PSV/EDV. 46.7/10.8 . Right renal artery mid 115.3/30.7 Left renal artery mid 49.7/16.8 PSV/EDV . PSV/EDV. Left renal artery distal 58.0/18.9 Right renal artery distal 129.4/25.1 PSV/EDV. PSV/EDV. Left RAR 0.70. Right RAR 1.36. Left Renal Parenchyma Right Renal Parenchyma Left upper pole medulla 33.6/8.4 Upper Pole Medula 36.8/12.6 PSV/EDV. PSV/EDV . Right upper pole medulla EDR 0.30 . Left upper pole medulla EDR 0.20 . Right upper pole medulla R.I. 0.66 . Left upper pole medulla R.I. 0.[address] Cortx 18.8/6.7 PSV/EDV. UP Cortex 17.7/6.2 PSV/EDV. Right upper pole cortex EDR 0.40 . Left upper pole cortex EDR 0.30 . Right upper pole cortex R.I. 0.64 . Left upper pole cortex R.I. 0.65 . Right lower Pole medulla 25.9/7.3 Left lower Pole medulla 29.8/7.8 PSV/EDV . PSV/EDV . Right lower pole medulla EDR 0.30 . Left lower pole medulla EDR 0.30 . Right lower pole medulla R.I. 0.72 . Left lower pole medulla R.I. 0.74 . Lower Pole Cortex 12.6/5.4 PSV/EDV. Lower Pole Cortx 14.4/6.2 PSV/EDV. Right lower pole cortex R.I. 0.66 . Left lower pole cortex EDR 0.40 . Right lower pole cortex EDR 0.40 . Left lower pole cortex R.I. 0.57 . Right Renal Hilar Left Renal Hilar Right Hilar avg 64.0/18.9 PSV/EDV. LT Hilar avg 51.3/14.7 PSV/EDV . Right hilar acceleration time 30 m/sec. Left hilar acceleration time 30 m/sec. Right Renal Dimensions Left Renal Dimensions Right kidney size 11.75 cm . Left kidney size 12.30 cm . Right cortical dimension 1.67 cm . Left cortical dimension 1.49 cm . Aorta Proximal abdominal aorta 2.88 x 2.90 cm . Proximal abdominal aorta peak systolic velocity is 98.5 cm/sec . Distal abdominal aorta 2.05 x 2.12 cm . Distal abdominal aorta peak systolic velocity is 105.1 cm/sec . VL/Renal Artery Duplex Ultrasound Interpretation Summary Right renal artery patent with normal velocities and no evidence of stenosis. Left renal artery patent with normal velocities and no evidence of stenosis. Right renal vein patent. Left renal vein patent. Right kidney normal in size. Left kidney normal in size. Ordering Physician: Anoop Love Chi Referring Physician: Anopo Love Chi Performed By: Omar Christopher RVRajiv
== END | disposition home or self-care (01) ==
PROVIDERS: PCP Family Medicine Geriatric Medicine; Referring Provider Family Medicine Geriatric Medicine; Visit Provider Family Medicine Geriatric Medicine
DX: N18.31 Chronic kidney disease, stage 3a (principal)
CPT/HCPCS: 93975

== ENCOUNTER → 2024-11-01 | Outpatient (CLI) | payer MEDICARE, SELFPAY | END | disposition home or self-care (01) | PROVIDERS: PCP Family Medicine Geriatric Medicine; Referring Provider Family Medicine Geriatric Medicine; Visit Provider Family Medicine Geriatric Medicine | DX: N39.0 Urinary tract infection, site not specified (principal) | CPT/HCPCS: 87077; 87086; 87088; 87186 ==

== ENCOUNTER 2024-11-10 13:52 | Outpatient (RCR) | payer MEDICARE, SELFPAY | END 2024-11-22 23:59 | LOC: NS 13:52 | PROVIDERS: PCP Family Medicine Geriatric Medicine; Referring Provider Family Medicine Geriatric Medicine; Visit Provider Family Medicine Geriatric Medicine | DX: Z71.3 Dietary counseling and surveillance (principal); E11.65 Type 2 diabetes mellitus with hyperglycemia | CPT/HCPCS: 97802 ==

== ENCOUNTER 2024-12-14 10:23 | Outpatient (RCR) | payer MEDICARE, SELFPAY | END 2024-12-23 23:59 | LOC: NS 10:23 | PROVIDERS: PCP Family Medicine Geriatric Medicine; Referring Provider Family Medicine Geriatric Medicine; Visit Provider Family Medicine Geriatric Medicine | DX: Z71.3 Dietary counseling and surveillance (principal); E11.65 Type 2 diabetes mellitus with hyperglycemia | CPT/HCPCS: 97803 ==

== ENCOUNTER → 2024-12-30 | Outpatient (CLI) | payer MEDICARE, SELFPAY ==
[2024-12-30 16:07] LABS: Hematocrit 43.6 % (40-54); Hemoglobin 14.5 g/dL (13.0-16.5); Immature Granulocytes Count 0.010 X10^3/uL (0.0-0.0); Mean Corp Hgb Conc 33.3 g/dL (32-36); Mean Corpuscular Volume 90.3 fL (80-94); Mean Platelet Vol. 11.5 fl (6.2-12.0); NRBC Flagged by Analyzer 0 % (0-5); Platelet Count 228 K/mm3 (150-450); RBC Distribution Width CV 12.2 % (11.6-14.6); RBC Distribution Width SD 40.3 fl (35.1-43.9); Red Blood Count 4.83 M/mm3 (4.6-6.2); White Blood Count 5.2 K/mm3 (4.4-11.0)
[2024-12-30 16:39] LABS: AST(SGOT) 28 U/L (<=37); Alanine Aminotransfer ALT/SGPT 21 U/L (<=46); Albumin, Serum 4.2 g/dL (3.4-4.8); Alkaline Phosphatase 102 U/L (40-129); Anion Gap 12 (5-15); BUN 25 mg/dL (4-19); BUN/Creat Ratio 19.1 RATIO (10-20); Calcium,Total 9.2 mg/dL (7.6-11.0); Carbon Dioxide 26.3 mmol/L (21.0-32.0); Chloride 99 mmol/L (98-108); Globulin 2.6 g/dL (2.2-4.2); Glucose 105 mg/dL (70-99); Potassium 3.8 mmol/L (3.3-5.1); Vitamin D,25 Hydroxy 37.4 ng/mL (30-100)
[2024-12-30 17:44] LABS: Cholesterol 118 mg/dL (<=200); Low Density Lipoprotein Calc. 49 mg/dL; Triglycerides 125 mg/dL; Very Low Density Lipoprotein 25 mg/dL (5-40); cholesterol:hdl ratio screen 2.66
[2024-12-30 23:32] LABS: Xtra Tube Kwok EXTRA TUBE
== END | disposition home or self-care (01) ==
LOC: POLAB3 15:31
PROVIDERS: PCP Family Medicine Geriatric Medicine; Visit Provider Family Medicine Geriatric Medicine
DX: E11.65 Type 2 diabetes mellitus with hyperglycemia (principal); I10 Essential (primary) hypertension; E55.9 Vitamin D deficiency, unspecified; E78.5 Hyperlipidemia, unspecified
CPT/HCPCS: 36415; 80053; 80061; 82306; 83036; 84443; 85025

== ENCOUNTER → 2025-03-28 | Outpatient (CLI) | payer MEDICARE, SELFPAY ==
[2025-03-28 09:51] LABS: Hematocrit 43.6 % (40-54); Hemoglobin 15.2 g/dL (13.0-16.5); Immature Granulocytes Count 0.020 X10^3/uL (0.0-0.0); Mean Corp Hgb Conc 34.9 g/dL (32-36); Mean Corpuscular Volume 86.7 fL (80-94); Mean Platelet Vol. 11.0 fl (6.2-12.0); NRBC Flagged by Analyzer 0 % (0-5); Platelet Count 230 K/mm3 (150-450); RBC Distribution Width CV 12.1 % (11.6-14.6); RBC Distribution Width SD 38.6 fl (35.1-43.9); Red Blood Count 5.03 M/mm3 (4.6-6.2); White Blood Count 4.4 K/mm3 (4.4-11.0)
[2025-03-28 10:32] LABS: Creatinine, Urine (random) 213.00 mg/dL (39.00-259.00); Microalbumin,Random Urine < 12.0 mg/L (<20 mg/L)
[2025-03-28 10:46] LABS: Cholesterol 118 mg/dL (<=200); Low Density Lipoprotein Calc. 44 mg/dL; Triglycerides 203 mg/dL; Very Low Density Lipoprotein 41 mg/dL (5-40); Vitamin D,25 Hydroxy 36.9 ng/mL (30-100); cholesterol:hdl ratio screen 2.89
[2025-03-28 10:48] LABS: AST(SGOT) 27 U/L (<=37); Alanine Aminotransfer ALT/SGPT 21 U/L (<=46); Albumin, Serum 4.0 g/dL (3.4-4.8); Alkaline Phosphatase 98 U/L (40-129); Anion Gap 10 (5-15); BUN 20 mg/dL (4-19); BUN/Creat Ratio 17.4 RATIO (10-20); Calcium,Total 9.2 mg/dL (7.6-11.0); Carbon Dioxide 26.1 mmol/L (21.0-32.0); Chloride 101 mmol/L (98-108); Globulin 2.8 g/dL (2.2-4.2); Glucose 166 mg/dL (70-99); Potassium 3.9 mmol/L (3.3-5.1)
[2025-03-28 11:52] LABS: PSA,Total - Annual Screen < 0.02 ng/mL (0.02-4.00)
[2025-03-28 17:32] LABS: Xtra Tube Kwok EXTRA TUBE
== END | disposition home or self-care (01) ==
LOC: POLAB3 09:29
PROVIDERS: PCP Family Medicine Geriatric Medicine; Visit Provider Family Medicine Geriatric Medicine
DX: E78.5 Hyperlipidemia, unspecified (principal); E11.65 Type 2 diabetes mellitus with hyperglycemia; I10 Essential (primary) hypertension; E03.9 Hypothyroidism, unspecified; E55.9 Vitamin D deficiency, unspecified; Z12.5 Encounter for screening for malignant neoplasm of prostate
CPT/HCPCS: 36415; 80053; 80061; 82043; 82306; 82570; 83036; 84153; 84443; 85025; G0103